=== PATIENT | male | born 1985 | race Caucasian/White ===

== ENCOUNTER 2017-04-30 11:10 | Emergency (ER) | payer SELFPAY ==
--- NOTE | 2017-04-30 12:23 | RAD ---
INDICATION: Swelling overlying the fourth and fifth metacarpals after a car henry fell on the patient's hand.Relevant history includes ORIF of fractured right fifth metacarpal. COMPARISON: Hand radiograph February 20, 2016 TECHNIQUE: 4 views of the right hand were obtained. FINDINGS: There is appearance of a healed fracture involving the fifth metacarpal distal head. The adequately corticated bones are in normal alignment. No significant focal osseous abnormality or fracture is seen. IMPRESSION: No radiographically apparent acute fracture or dislocation. If the patient's symptoms persist, follow-up imaging is recommended.
[2017-04-30 13:27] VITALS: BP 125/79
[2017-04-30] MEDS ORDERED: HYDROcodone/ACETAMIN 5-325 MG* 1 TAB PO ONE (13:39)
--- NOTE | 2017-04-30 13:45 | UC ---
Hand/Wrist HPI - HPI Summary HPI Summary: Kareen figueroa fell on right hand yesterday pain and swelling ringh hand 4/5 MC - History Of Current Complaint Chief Complaint: UCUpperExtremity Stated Complaint: R HAND PAIN Time Seen by Provider: 04/30/17 13:29 Hx Obtained From: Patient Mechanism Of Injury: crush injury Onset/Duration: Sudden Onset, Lasting Days - 1 Severity Initially: Moderate Severity Currently: Moderate Pain Intensity: 7 Pain Scale Used: 0-10 Numeric Character Of Pain: Aching, Throbbing Aggravating Factor(s): Movement Alleviating Factor(s): Rest, Ice, Elevation Associated Signs And Symptoms: Positive: Swelling, Bruising Related History: Dominant Hand Right - Allergies/Home Medications Allergies/Adverse Reactions: Allergies Allergy/AdvReac Type Severity Reaction Status Date / Time Amoxicillin Allergy Mild Rash Verified 04/30/17 11:45 Penicillins Allergy Mild Rash Verified 04/30/17 11:45 PMH/Surg Hx/FS Hx/Imm Hx Previously Healthy: No - Boxers fracture right hand - Surgical History Surgical History: None Surgery Procedure, Year, and Place: Lipoma x 5; - Family History Known Family History: Positive: Other - celiac disease - Social History Occupation: Employed Full-time Lives: With Family Alcohol Use: None Substance Use Type: None Substance Use Comment - Amount & Last Used: stopped 3 weeks ago Smoking Status (MU): Light Every Day Tobacco Smoker Type: Cigarettes Amount Used/How Often: 3-4 Length of Time of Smoking/Using Tobacco: since age 15 Have You Smoked in the Last Year: Yes When Did the Patient Quit Smoking/Using Tobacco: 4 days ago Household Exposure Type: Cigarettes Cessation Counseling: Patient Advised to Stop Review of Systems Constitutional: Negative Skin: Negative Eyes: Negative ENT: Negative Respiratory: Negative Cardiovascular: Negative Gastrointestinal: Negative Genitourinary: Negative Motor: Negative Neurovascular: Negative Musculoskeletal: Arthralgia - right hand especially 4/5 metacarpal Neurological: Negative Psychological: Negative Is Patient Immunocompromised?: No All Other Systems Reviewed And Are Negative: Yes Physical Exam Triage Information Reviewed: Yes Appearance: Well-Appearing, Well-Nourished, Pain Distress - right hand Vital Signs: Initial Vital Signs Temp 97.7 F 04/30/17 11:42 Pulse 90 04/30/17 11:42 Resp 18 04/30/17 11:42 BP 130/78 04/30/17 11:42 Pulse Ox 100 04/30/17 11:42 Vital Signs Reviewed: Yes Eye Exam: Normal Eyes: Positive: Conjunctiva Clear ENT Exam: Normal ENT: Positive: Normal ENT inspection, Hearing grossly normal, TMs normal. Negative: Nasal congestion, Nasal drainage, Trismus, Muffled/hoarse voice Neck exam: Normal Neck: Positive: Supple, Nontender Respiratory Exam: Normal Respiratory: Positive: Chest non-tender, No respiratory distress, No accessory muscle use Cardiovascular Exam: Normal Cardiovascular: Positive: RRR, Pulses Normal, Brisk Capillary Refill Musculoskeletal Exam: Other - right hand pain Musculoskeletal: Positive: Strength Limited @ - right hand, ROM Limited @ - right 4/5 finger, Edema @ - right hand Neurological Exam: Normal Neurological: Positive: Alert, Muscle Tone Normal Psychological Exam: Normal Skin Exam: Normal Diagnostics - Radiology No standard instances Xray Interpretation: No Acute Changes Radiology Interpretation Completed By: ED Physician, Radiologist Re-Evaluation - Re-Evaluation First Eval Change: Improved - Harry wrap apllied n/m/c intact Hand/Wrist Course/Dx - Course Course Of Treatment: rice, pain control, elevation follow with ortho if fails to improve - Differential Dx/Diagnosis Differential Diagnosis/HQI/PQRI: Contusion Provider Diagnoses: Right hand contusion Discharge - Discharge Plan Condition: Stable Disposition: HOME Prescriptions: Hydrocodone-Acetaminophen [Hydrocodone/Acetaminophen 5-325 mg] 1 tab PO Q6HR # 12 tab MDD 4 Ibuprofen TAB* [Motrin TAB* 600 MG] 600 mg PO Q6H PRN #40 tab PRN Reason: Pain - Mild To Moderate Patient Education Materials: Contusion in Adults (ED), RICE Therapy (ED) Forms: *Work Release Referrals: Tanner Perez MD [Primary Care Provider] - Tanner Randall MD [Medical Doctor] - If Needed
== END 2017-04-30 13:54 | disposition home or self-care (01) ==
LOC: UCEAST 11:10
DX: S60.221A Contusion of right hand, initial encounter (principal); Z88.1 Allergy status to other antibiotic agents; Z88.0 Allergy status to penicillin; F17.210 Nicotine dependence, cigarettes, uncomplicated; W19.XXXA Unspecified fall, initial encounter; Y92.9 Unspecified place or not applicable
CPT/HCPCS: 99212; G0463

== ENCOUNTER 2017-08-22 10:44 | Emergency (ER) | payer SELFPAY ==
[2017-08-22 11:27] VITALS: BP 124/77
--- NOTE | 2017-08-22 12:35 | UC ---
Abdominal Pain Male HPI - HPI Summary HPI Summary: Pt reports udden onset of left groin pain after lifting heavy object. Pt states that pain is relieved with left leg extension and external rotation. Pt alos, c /o radiating pain to lft side of scrotum. Denies, scrotal discoloration or swelling. - History of Current Complaint Chief Complaint: UCGU Stated Complaint: GROIN PAIN Time Seen by Provider: 08/22/17 12:23 Hx Obtained From: Patient Onset/Duration: Sudden Onset, Lasting Days - pain has waxed and waned., Still Present Timing: Constant Severity Initially: Moderate Severity Currently: Mild Pain Intensity: 8 Location: Discrete At: LLQ, Other - groin Character: Dull, Sharp Aggravating Factor(s): Movement Alleviating Factor(s): Rest, Position Associated Signs And Symptoms: Positive: Negative - Allergies/Home Medications Allergies/Adverse Reactions: Allergies Allergy/AdvReac Type Severity Reaction Status Date / Time MS Amoxicillin [Amoxicillin] Allergy Mild Rash Verified 08/22/17 11:21 MS Penicillins [Penicillins] Allergy Mild Rash Verified 08/22/17 11:21 Home Medications: Home Medications NK [No Home Medications Reported] 08/22/17 [History Confirmed 08/22/17] PMH/Surg Hx/FS Hx/Imm Hx Previously Healthy: Yes - Surgical History Surgical History: Yes Surgery Procedure, Year, and Place: Colonoscopy and Endoscopy, 2015, [place]; Lipoma x 5; - Family History Known Family History: Positive: Other - celiac disease - Social History Occupation: Employed Full-time Lives: With Family Alcohol Use: None Substance Use Type: None Substance Use Comment - Amount & Last Used: stopped 3 weeks ago Smoking Status (MU): Light Every Day Tobacco Smoker Type: Cigarettes Amount Used/How Often: 08/01 PPD "I'm cuttin' back." Length of Time of Smoking/Using Tobacco: Since Age 16 Have You Smoked in the Last Year: Yes When Did the Patient Quit Smoking/Using Tobacco: 4 days ago Household Exposure Type: Cigarettes Review of Systems Constitutional: Negative Skin: Negative Eyes: Negative ENT: Negative Respiratory: Negative Cardiovascular: Negative Gastrointestinal: Abdominal Pain - groin left side Genitourinary: Other - scrotal tenderness Motor: Negative Neurovascular: Negative Musculoskeletal: Myalgia - left hip/groin Neurological: Negative Psychological: Negative Is Patient Immunocompromised?: No All Other Systems Reviewed And Are Negative: Yes Physical Exam Triage Information Reviewed: Yes Appearance: Well-Appearing Vital Signs: Initial Vital Signs Temp 98.1 F 08/22/17 11:19 Pulse 86 08/22/17 11:19 Resp 16 08/22/17 11:19 BP 124/77 08/22/17 11:19 Pulse Ox 98 08/22/17 11:19 Vital Signs Reviewed: Yes Eye Exam: Normal ENT Exam: Normal Neck exam: Normal Respiratory Exam: Normal Cardiovascular Exam: Normal Abdominal Exam: Other - no inguinal hernia appreciated, no abdominal hernia appreciate, left side spermatic cord tenderness, no swelling, discoloration or testicular elevation. NO urinary complaint Musculoskeletal Exam: Normal Neurological Exam: Normal Psychological Exam: Normal Skin Exam: Normal Abd Pain Male Course/Dx - Course Course Of Treatment: I discussed with the pt the need to follow up with your PCP or with the urologist as referred as soon as needed. - Differential Dx/Clinical Impression Differential Diagnosis/HQI/PQRI: Testicular Torsion, Other - hernia, spermatic cord injury Provider Diagnoses: muscle strain. Discharge - Discharge Plan Condition: Stable Disposition: HOME Patient Education Materials: Groin Pain (ED) Forms: *Work Release Referrals: Tanner Perez MD [Primary Care Provider] - If Needed Antonio Erazo MD [Medical Doctor] - 1 Day Additional Instructions: Please follow up with your PCP or return to clinic. We have referred you to a Urologist to see as needed and if your symptoms do not improve in the next 24 hours.
== END 2017-08-22 12:48 | disposition home or self-care (01) ==
LOC: UCCORT 10:44
DX: S39.011A Strain of muscle, fascia and tendon of abdomen, initial encounter (principal); F17.210 Nicotine dependence, cigarettes, uncomplicated; X50.0XXA Overexertion from strenuous movement or load, initial encounter; Y92.9 Unspecified place or not applicable
CPT/HCPCS: 99211; G0463

== ENCOUNTER 2017-12-03 15:27 | Emergency (ER) | payer SELFPAY ==
[2017-12-03 15:41] VITALS: BP 118/79
--- NOTE | 2017-12-03 16:07 | UC ---
Nausea/Vomiting/Diarrhea HPI - HPI Summary HPI Summary: This is an otherwise healthy 32 yo male who presents with c/o n/v x 2d. He noticed some blood tinged vomitus earlier today after multiple episodes of vomiting. Reports positional chest pain over the last day. No SOB. Also reports associated abdominal pain. He has been constipated for the last couple of days. Vance warm, no measured fevers. He has not taken anything in by both in the last 24 hours. - History of Current Complaint Chief Complaint: UCGI Stated Complaint: VOMITING, AND CHEST CONGESTION Pain Intensity: 7 - Allergies/Home Medications Allergies/Adverse Reactions: Allergies Allergy/AdvReac Type Severity Reaction Status Date / Time MS Amoxicillin [Amoxicillin] Allergy Mild Rash Verified 12/03/17 15:35 MS Penicillins [Penicillins] Allergy Mild Rash Verified 12/03/17 15:35 PMH/Surg Hx/FS Hx/Imm Hx Previously Healthy: Yes - Surgical History Surgical History: Yes Surgery Procedure, Year, and Place: Colonoscopy and Endoscopy, 2016, [place]; Lipoma x 5; - Family History Known Family History: Positive: Other - celiac disease - Social History Alcohol Use: None Substance Use Type: None Substance Use Comment - Amount & Last Used: stopped 3 weeks ago Smoking Status (MU): Former Smoker Type: Cigarettes Amount Used/How Often: / PPD "I'm cuttin' back." Length of Time of Smoking/Using Tobacco: Since Age 16 Have You Smoked in the Last Year: Yes When Did the Patient Quit Smoking/Using Tobacco: 4 days ago Household Exposure Type: Cigarettes Review of Systems Constitutional: Negative Skin: Negative Eyes: Negative ENT: Negative Respiratory: Negative Cardiovascular: Negative Gastrointestinal: Abdominal Pain, Vomiting, Nausea Genitourinary: Negative Motor: Negative Neurovascular: Negative Musculoskeletal: Negative Neurological: Negative Psychological: Negative Is Patient Immunocompromised?: No All Other Systems Reviewed And Are Negative: Yes Physical Exam Triage Information Reviewed: Yes Appearance: Ill-Appearing - mildly Vital Signs: Initial Vital Signs Temp 98.5 F 12/03/17 15:34 Pulse 89 12/03/17 15:34 Resp 18 12/03/17 15:34 BP 118/79 12/03/17 15:34 Pulse Ox 98 12/03/17 15:34 Vital Signs Reviewed: Yes ENT Exam: Other - mucus membranes are tacky Neck: Positive: Supple, Nontender, No Lymphadenopathy Respiratory: Positive: Lungs clear. Negative: Chest non-tender - TTP over L chest wall, Crackles, Rhonchi, Wheezing Cardiovascular Exam: Normal Cardiovascular: Positive: RRR, No Murmur Abdomen Description: Positive: Soft. Negative: Nontender - TTP over epigastric region Bowel Sounds: Positive: Present Musculoskeletal Exam: Normal Neurological Exam: Normal Psychological Exam: Normal Skin Exam: Normal Diagnostics - Laboratory Diagnostic Studies Completed/Ordered: EKG - NSR Naus/Vom/Diarrhea Course/Dx - Course Course Of Treatment: 32 yo male with intractable n/v, abd pain and hematemesis. Epigastric TTP. Recommended he proceed to the ER for further evaluation, which he was agreeable to. Male friend will transport him. - Differential Dx/Diagnosis Differential Diagnoses - Male: Urinary Tract Infection, Gastroenteritis (Viral) Provider Diagnoses: Hematemesis Condition At Discharge: Stable Discharge - Sign-Out/Discharge Documenting (check all that apply): Discharge/Admit/Transfer - Discharge Plan Condition: Stable Disposition: HOME Patient Education Materials: Hematemesis (ED) Referrals: Tanner Perez MD [Primary Care Provider] - Additional Instructions: Instructions: PLEASE PROCEED TO THE EMERGENCY DEPARTMENT FOR FURTHER EVALUATION - Billing Disposition and Condition Condition: STABLE Disposition: HOME
== END 2017-12-03 16:15 | disposition home or self-care (01) ==
LOC: UCEAST 15:27
DX: K92.0 Hematemesis (principal); R10.13 Epigastric pain; K59.00 Constipation, unspecified; Z88.0 Allergy status to penicillin; Z72.0 Tobacco use
CPT/HCPCS: 93005; 99212; G0463

== ENCOUNTER 2017-12-03 16:32 | Emergency (ER) | payer SELFPAY ==
[2017-12-03] MEDS ORDERED: Ondansetron ODT TAB* 4 MG PO ONE (16:51)
[2017-12-03] MEDS ORDERED: Ketorolac INJ* 30 MG/ML 1 ML VIAL IV PUSH ONE (16:51)
[2017-12-03] MEDS ORDERED: NS 0.9% 1000 ML* 1,000 ML IV ONE (16:51)
[2017-12-03] MEDS ORDERED: Pantoprazole IV* 40 MG IV ONE (16:51)
--- NOTE | 2017-12-03 17:00 | ED ---
HPI Chest Pain - HPI Summary HPI Summary: 32 male presents with chest pain and vomiting for the past 2 days. He states that it feels like a burning in his chest. It is worse with positional changes. Denies any recent illness. He denies any cough. He denies any shortness breath. He denies any palpitations. He states he has been nauseous and vomiting. He states he has seen some streaking in his vomit. He denies any chronic ibuprofen or alcohol use. He admits to generalized abdominal pain. He denies any sore throat. He denies any diarrhea. He also admits to constipation. He denies eating anything different. Nothing makes his pain better or worse. - History of Current Complaint Chief Complaint: EDChestWallPain Time Seen by Provider: 12/03/17 16:43 Pain Intensity: 6 - Allergy/Home Medications Allergies/Adverse Reactions: Allergies Allergy/AdvReac Type Severity Reaction Status Date / Time amoxicillin Allergy Rash Verified 12/03/17 16:34 Penicillins Allergy Rash Verified 12/03/17 16:34 PMH/Surg Hx/FS Hx/Imm Hx Endocrine/Hematology History: Denies: Hx Diabetes Cardiovascular History: Reports: Other Cardiovascular Problems/Disorders - H/O BRADYCARDIA Denies: Hx Pacemaker/ICD Comment Only: Hx Hypertension - bradycardia Jul 2015-[facility] Respiratory History: Denies: Hx Asthma Sensory History: Denies: Hx Hearing Aid Psychiatric History: Reports: Hx Anxiety, Hx Panic Disorder - TAKES MEDICATION - Surgical History Surgery Procedure, Year, and Place: Colonoscopy and Endoscopy, 2015, [place]; Lipoma x 5; Infectious Disease History: No Infectious Disease History: Denies: History Other Infectious Disease, Traveled Outside the [place] in Last 30 Days - Family History Known Family History: Positive: Other - celiac disease - Social History Alcohol Use: None Substance Use Type: Reports: None Substance Use Comment - Amount & Last Used: stopped 3 weeks ago Smoking Status (MU): Former Smoker Type: Cigarettes Amount Used/How Often: / PPD "I'm cuttin' back." Length of Time of Smoking/Using Tobacco: Since Age 16 Have You Smoked in the Last Year: Yes Review of Systems Negative: Fever Positive: Chest Pain Negative: Shortness Of Breath, Cough Positive: Abdominal Pain, Vomiting, Nausea. Negative: Diarrhea All Other Systems Reviewed And Are Negative: Yes Physical Exam Triage Information Reviewed: Yes Vital Signs On Initial Exam: Initial Vitals Temp Pulse Resp BP Pulse Ox 98.5 F 75 16 133/81 98 12/03/17 16:34 12/03/17 16:34 12/03/17 16:34 12/03/17 16:34 12/03/17 16:34 Vital Signs Reviewed: Yes Appearance: Positive: Well-Appearing Skin: Positive: Warm, Dry Head/Face: Positive: Normal Head/Face Inspection Eyes: Positive: Normal, EOMI, JOVAN, Conjunctiva Clear ENT: Positive: Normal ENT inspection, Pharynx normal, TMs normal Respiratory/Lung Sounds: Positive: Clear to Auscultation, Breath Sounds Present , Other - reproducible chest pain Cardiovascular: Positive: Normal, RRR Abdomen Description: Positive: Soft, Other: - mild diffuse tenderness greatest in LUQ Bowel Sounds: Positive: Present Musculoskeletal: Positive: Normal Neurological: Positive: Normal Psychiatric: Positive: Normal Diagnostics - Vital Signs Vital Signs Temp Pulse Resp BP Pulse Ox 12/03/17 16:47 76 22 129/75 96 12/03/17 16:45 68 22 96 12/03/17 16:34 98.5 F 75 16 133/81 98 - Laboratory Result Diagrams: 12/03/17 16:58 12/03/17 16:58 Lab Statement: Any lab studies that have been ordered have been reviewed, and results considered in the medical decision making process. - Radiology chest Xray Interpretation: No Acute Changes Radiology Interpretation Completed By: Radiologist abd Xray Interpretation: Positive (See Comments) - IMPRESSION: MODERATE RETAINED STOOL. Radiology Interpretation Completed By: Radiologist - EKG No standard instances EKG Rhythm: Sinus Rhythm EKG Interpretation: sinus rhythm, early repolizaration, EKG Comparison: No Significant Change Re-Evaluation - Re-Evaluation First Eval Re-Evaluation Time: 07:30 Change: Improved Comment: feeling better after gi cocktail Chest Pain Course/Dx - Course Course Of Treatment: 32 male presents with chest pain and vomiting for the past 2 days. He states that it feels like a burning in his chest. It is worse with positional changes. Denies any recent illness. He denies any cough. He denies any shortness breath. He denies any palpitations. He states he has been nauseous and vomiting. He states he has seen some streaking in his vomit. He denies any chronic ibuprofen or alcohol use. He admits to generalized abdominal pain. He denies any sore throat. He denies any diarrhea. He also admits to constipation. He denies eating anything different. Nothing makes his pain better or worse. On exam has reproducible chest pain. Tenderness generalized abdominal greatest in the epigastric region. Lungs clear to auscultation. EKG normal. Labs were within normal limits. two negative troponins. Chest x-ray normal. Abdominal x-ray shows constipation. Feeling better after a GI cocktail. We'll prescribe omeprazole Maalox and Zofran for symptoms. Also prescribed MiraLAX for constipation. will have follow up with primary. Patient understands agrees with plan. - Chest Pain Differential Diagnosis/HQI/PQRI: Acute WI, Chest Wall, GI Disease - Diagnoses Provider Diagnoses: Chest pain, Epigastric pain, Hematemesis, Constipation Discharge - Sign-Out/Discharge Documenting (check all that apply): Discharge/Admit/Transfer - Discharge Plan Condition: Good Disposition: HOME Prescriptions: Al Hydrox/Mg Hydrox/Simet LIQ* [Maalox Plus*] 30 ml PO Q4H PRN #1 bottle PRN Reason: Dyspepsia Omeprazole CAP* [Prilosec CAP* 20 MG] 20 mg PO DAILY #14 cap. Ondansetron ODT TAB* [Zofran 4 MG Odt TAB*] 4 mg PO Q6H PRN #12 tab.odt PRN Reason: Nausea Polyethylene Glycol 3350* [Miralax*] 17 gm PO DAILY #1 box Patient Education Materials: Diet for Stomach Ulcers and Gastritis (ED), Epigastric Pain (ED) Forms: *Work Release Referrals: Tanner Perez MD [Primary Care Provider] - Additional Instructions: Take omeprazole once a day Take Maalox 30ml every 6 hours for epigastric pain as needed Avoid acidic foods Elevated head of bed Stay upright for at least 30 mins after eating Take zofran every 6 hours for nausea Take tyenlol every 6 hours as need for pain Follow up with primary within 5 days Return to ED if develop any new or worsening symptoms - Billing Disposition and Condition Condition: GOOD Disposition: HOME
[2017-12-03 17:08] LABS: ABS Basophils 0.1 10^3/ul (0-0.2); ABS Eosinophils 0.2 10^3/ul (0-0.6); ABS Lymphocytes 2.7 10^3/ul (1.0-4.8); ABS Monocytes 0.7 10^3/ul (0-0.8); ABS Neutrophils 4.4 10^3/ul (1.5-7.7); ABS Nucleated RBC 0 10^3/ul; Eosinophil % 2.1 % (0-6); Hematocrit 50 % (42-52); Hemoglobin 17.8 g/dl (14.0-18.0); Lymphocyte % 33.7 % (25-47); Mean Corpuscular HGB Conc 36 g/dl (31-36); Mean Corpuscular Hemoglobin 30 pg (27-31); Mean Corpuscular Volume 85 fL (80-94); Mean Platelet Volume 7.8 um3 (7.4-10.4); Nucleated Red Blood Cells % 0.1; Platelet Count 266 10^3/ul (150-450); Red Cell Distribution Width 13 % (10.5-15)
[2017-12-03 17:15] LABS: INR 0.91 (0.77-1.02)
[2017-12-03 17:25] LABS: EGFR Non-African American 96.6 (>60)
[2017-12-03] MEDS ORDERED: Al Hydrox/Mg Hydrox/Simet LIQ* 30 ML UDC PO ONE (18:02)
[2017-12-03] MEDS ORDERED: Lidocaine 2% VISCOUS* 15 ML UDC PO ONE (18:02)
--- NOTE | 2017-12-03 18:07 | RAD ---
INDICATION: Abdominal pain COMPARISON: None TECHNIQUE: Erect and supine views of the abdomen are submitted. FINDINGS: Bones: There are no acute bony findings. Soft tissues: The soft tissues appear normal. The psoas margins are sharp. Bowel gas pattern: There is no obstruction. There is moderate stool. Calcifications: There are no abnormal calcifications. Other: None IMPRESSION: MODERATE RETAINED STOOL.
--- NOTE | 2017-12-03 18:08 | RAD ---
INDICATION: Chest pain COMPARISON: July 01, 2015 TECHNIQUE: PA and lateral dual-energy views were obtained. FINDINGS: Bones/Soft Tissues: There are no acute bony findings. Cardiomediastinal: The cardiomediastinal silhouette is normal. Lungs: There are no infiltrates. Pleura: There are no pleural effusions. Other: None IMPRESSION: NO ACTIVE DISEASE.
[2017-12-03] MEDS ORDERED: Famotidine TAB* 20 MG PO ONE (19:09)
[2017-12-03 20:35] VITALS: BP 118/78
== END 2017-12-03 20:34 | disposition home or self-care (01) ==
LOC: ED 16:32
DX: R07.9 Chest pain, unspecified (principal); R10.13 Epigastric pain; K92.0 Hematemesis; K59.00 Constipation, unspecified; F17.210 Nicotine dependence, cigarettes, uncomplicated; Z88.0 Allergy status to penicillin; Z88.3 Allergy status to other anti-infective agents
CPT/HCPCS: 36415; 71046; 74019; 80053; 83690; 84443; 84484; 85025; 85610; 85730; 86141; 93005; 96374; 96375; 99283; A9270-GY; J1885

== ENCOUNTER 2018-01-24 01:41 | Emergency (ER) | payer SELFPAY ==
[2018-01-24 04:37] VITALS: BP 136/92
--- NOTE | 2018-01-24 04:50 | ED ---
Derek Cordero SooYoung, scribed for Jere Chan MD on 01/24/18 at 0345 . Lower Extremity - HPI Summary HPI Summary: A 32 y/o M presents to ED with c/o LLE edema onset approx 2200 on 01/23/18. Associated sx: LLE pain. Pt states prior to edema he was able to ambulate at baseline. Denies trauma. Denies any recent long car rides, plane or train trips. - History of Current Complaint Chief Complaint: EDExtremityLower Stated Complaint: LT LEG SWOLLEN Time Seen by Provider: 01/24/18 03:35 Hx Obtained From: Patient Onset of Pain: Hours Onset/Duration: Still Present Severity Initially: Moderate Severity Currently: Moderate Pain Intensity: 6 Pain Scale Used: 0-10 Numeric Timing: Constant Location: Is Discrete @ - LLE Associated Signs And Symptoms: Positive: Other - LLE pain - Allergies/Home Medications Allergies/Adverse Reactions: Allergies Allergy/AdvReac Type Severity Reaction Status Date / Time amoxicillin Allergy Rash Verified 01/10/18 16:08 Penicillins Allergy Rash Verified 01/10/18 16:08 PMH/Surg Hx/FS Hx/Imm Hx Previously Healthy: No Endocrine/Hematology History: Denies: Hx Diabetes Cardiovascular History: Reports: Other Cardiovascular Problems/Disorders - H/O BRADYCARDIA Denies: Hx Pacemaker/ICD Comment Only: Hx Hypertension - bradycardia Jul 2015-[facility] Respiratory History: Denies: Hx Asthma Sensory History: Denies: Hx Hearing Aid Psychiatric History: Reports: Hx Anxiety, Hx Panic Disorder - TAKES MEDICATION - Surgical History Surgery Procedure, Year, and Place: Colonoscopy and Endoscopy, 2015, [place]; Lipoma x 5; Infectious Disease History: No Infectious Disease History: Denies: History Other Infectious Disease, Traveled Outside the [place] in Last 30 Days - Family History Known Family History: Positive: Cardiac Disease - mom's sister with [place] at age 40 , grandfather with [place] in his late 40's, Other - celiac disease - Social History Occupation: Employed Full-time Lives: With Family Alcohol Use: Occasionally Hx Substance Use: No Substance Use Type: Reports: None Substance Use Comment - Amount & Last Used: stopped 3 weeks ago Hx Tobacco Use: Yes Smoking Status (MU): Former Smoker Type: Cigarettes Amount Used/How Often: 08/01 PPD "I'm cuttin' back." Length of Time of Smoking/Using Tobacco: Since Age 16 Have You Smoked in the Last Year: Yes Review of Systems Negative: Fever Positive: Edema - LLE, Other - LLE pain All Other Systems Reviewed And Are Negative: Yes Physical Exam - Summary Physical Exam Summary: VITAL SIGNS: Reviewed. GENERAL: Patient is a well-developed and nourished MALE who is lying comfortable in the stretcher. Patient is not in any acute respiratory distress. HEAD AND FACE: No signs of trauma. No ecchymosis, hematomas or skull depressions. No sinus tenderness. EYES: PERRLA, EOMI x 2, No injected conjunctiva, no nystagmus. EARS: Hearing grossly intact. Ear canals and tympanic membranes are within normal limits. MOUTH: Oropharynx within normal limits. NECK: Supple, trachea is midline, no adenopathy, no JVD, no carotid bruit, no c- spine tenderness, neck with full ROM. CHEST: Symmetric, no tenderness at palpation LUNGS: Clear to auscultation bilaterally. No wheezing or crackles. CVS: Regular rate and rhythm, S1 and S2 present, no murmurs or gallops appreciated. ABDOMEN: Soft, non-tender. No signs of distention. No rebound no guarding, and no masses palpated. Bowel sounds are normal. EXTREMITIES: FROM in all major joints, no edema, no cyanosis or clubbing. Tenderness over L calf. NEURO: Alert and oriented x 3. No acute neurological deficits. Speech is normal and follows commands. NEUROVASCULAR: Intact SKIN: Dry and warm Triage Information Reviewed: Yes Vital Signs On Initial Exam: Initial Vitals Temp Pulse Resp BP Pulse Ox 98.1 F 81 16 156/139 98 01/24/18 01:57 01/24/18 01:57 01/24/18 01:57 01/24/18 01:57 01/24/18 01:57 Vital Signs Reviewed: Yes Diagnostics - Vital Signs Vital Signs Temp Pulse Resp BP Pulse Ox 01/24/18 01:57 98.1 F 81 16 156/139 98 - Laboratory Lab Statement: Any lab studies that have been ordered have been reviewed, and results considered in the medical decision making process. Re-Evaluation - Re-Evaluation 1 Re-Evaluation Time: 04:25 Change: Unchanged Comment: Discussing lab results with pt. Pt voiced understanding. Lower Extremity Course/Dx - Course Course Of Treatment: A 32 y/o M presents to ED with c/o LLE edema onset approx 2200 on 01/23/18. Associated sx: LLE pain. Pt states prior to edema he was able to ambulate at baseline. Denies trauma. Denies any recent long car rides, plane or train trips. - Diagnoses Provider Diagnoses: Leg pain Discharge - Sign-Out/Discharge Documenting (check all that apply): Discharge/Admit/Transfer - DC - Discharge Plan Condition: Stable Disposition: HOME Prescriptions: Ibuprofen TAB* [Motrin TAB* 800 MG] 800 mg PO Q6H PRN #30 tab PRN Reason: Pain Patient Education Materials: Ibuprofen (By mouth), Leg Pain (ED) Referrals: Tanner Perez MD [Primary Care Provider] - Additional Instructions: RETURN TO THE EMERGENCY DEPARTMENT FOR CHANGING OR WORSENING SYMPTOMS. The documentation as recorded by the Derek toth SooYoung accurately reflects the service I personally performed and the decisions made by Dustin raphael Abdul, MD.
== END 2018-01-24 04:35 | disposition home or self-care (01) ==
LOC: ED 01:41
DX: M79.605 Pain in left leg (principal); R60.0 Localized edema; Z87.891 Personal history of nicotine dependence; Z88.3 Allergy status to other anti-infective agents; Z88.0 Allergy status to penicillin
CPT/HCPCS: 36415; 85379; 85610; 85730; 99282

== ENCOUNTER 2018-02-02 22:16 | Emergency (ER) | payer SELFPAY ==
[2018-02-02] MEDS ORDERED: Metoclopramide TAB* 10 MG PO ONE (23:04)
[2018-02-02] MEDS ORDERED: Acetaminophen TAB* 325 MG PO ONE (23:04)
[2018-02-02] MEDS ORDERED: diPHENhydraMINE PO* 25 MG PO ONE (23:04)
--- NOTE | 2018-02-02 23:33 | ED ---
Headache - HPI Summary HPI Summary: Patient complains of intermittent headache, photosensitivity, blurry vision x few weeks. Headache described as behind bilateral eyes, extending over the top of the head and right side head. At worst rated at 8/10. Resolves spontaneously or with sleep. Patient has not been taking any medication for MORENO. Denies fever, neck stiffness, AMS, focal deficits, cough, sore throat, ear pain, CP, SOB, N/V/D, abdominal pain, change in urinary BM. States history of occasional headaches, but these of been more frequent. Medical history is GERD , bradycardia. - History Of Current Complaint Chief Complaint: EDHeadache Stated Complaint: HEADACHE Time Seen by Provider: 02/02/18 22:33 Hx Obtained From: Patient Onset/Duration: Gradual Onset Initially Headache Was: Moderate Currently Pain Is: Moderate Timing: Intermittent, Lasting: Character: Throbbing Location of Headache: Frontal, Parietal Associated Signs And Symptoms: Visual Changes - Allergies/Home Medications Allergies/Adverse Reactions: Allergies Allergy/AdvReac Type Severity Reaction Status Date / Time amoxicillin Allergy Rash Verified 01/10/18 16:08 Penicillins Allergy Rash Verified 01/10/18 16:08 PMH/Surg Hx/FS Hx/Imm Hx Endocrine/Hematology History: Denies: Hx Anticoagulant Therapy, Hx Diabetes Cardiovascular History: Reports: Other Cardiovascular Problems/Disorders - H/O BRADYCARDIA Denies: Hx Pacemaker/ICD Comment Only: Hx Hypertension - bradycardia Jul 2015-[facility] Respiratory History: Denies: Hx Asthma History: Denies: Hx Dialysis Sensory History: Denies: Hx Hearing Aid Neurological History: Denies: Hx CVA Psychiatric History: Reports: Hx Anxiety, Hx Panic Disorder - TAKES MEDICATION - Surgical History Surgery Procedure, Year, and Place: Colonoscopy and Endoscopy, 2016, [place]; Lipoma x 5; Infectious Disease History: No Infectious Disease History: Denies: History Other Infectious Disease, Traveled Outside the [place] in Last 30 Days - Family History Known Family History: Positive: Cardiac Disease - mom's sister with [place] at age 40 , grandfather with [place] in his late 40's, Other - celiac disease - Social History Alcohol Use: Occasionally Hx Substance Use: No Substance Use Type: Reports: None Substance Use Comment - Amount & Last Used: stopped 3 weeks ago Hx Tobacco Use: Yes Smoking Status (MU): Former Smoker Type: Cigarettes Amount Used/How Often: 1/10 PPD "I'm cuttin' back." Length of Time of Smoking/Using Tobacco: Since Age 16 Have You Smoked in the Last Year: Yes Review of Systems Constitutional: Negative Positive: Photophobia, Blurred Vision ENT: Negative Cardiovascular: Negative Respiratory: Negative Gastrointestinal: Negative Genitourinary: Negative Musculoskeletal: Negative Skin: Negative Positive: Headache Psychological: Normal All Other Systems Reviewed And Are Negative: Yes Physical Exam Triage Information Reviewed: Yes Vital Signs On Initial Exam: Initial Vitals Temp Pulse Resp BP Pulse Ox 97.9 F 81 17 140/83 97 02/02/18 22:24 02/02/18 22:24 02/02/18 22:24 02/02/18 22:24 02/02/18 22:24 Vital Signs Reviewed: Yes Appearance: Positive: Well-Appearing Skin: Positive: Warm Head/Face: Positive: Normal Head/Face Inspection Eyes: Positive: Normal ENT: Positive: Normal ENT inspection Neck: Positive: Supple Respiratory/Lung Sounds: Positive: Clear to Auscultation Cardiovascular: Positive: Normal Abdomen Description: Positive: Nontender Musculoskeletal: Positive: Normal Neurological: Positive: Normal Psychiatric: Positive: Normal AVPU Assessment: Alert - [place] Coma Scale Best Eye Response: 4 - Spontaneous Best Motor Response: 6 - Obeys Commands Best Verbal Response: 5 - Oriented Coma Scale Total: 15 Diagnostics - Vital Signs Vital Signs Temp Pulse Resp BP Pulse Ox 02/02/18 22:24 97.9 F 81 17 140/83 97 - Laboratory Lab Statement: Any lab studies that have been ordered have been reviewed, and results considered in the medical decision making process. Re-Evaluation - Re-Evaluation 1 Re-Evaluation Time: 00:10 Comment: Pain somewhat resolved with Reglan, Tylenol, Benadryl Headache Course/Dx - Course Course Of Treatment: Patient complains of intermittent headache, photosensitivity, blurry vision x few weeks. Headache described as behind bilateral eyes, extending over the top of the head and right side head. At worst rated at 8/10. Resolves spontaneously or with sleep. Patient has not been taking any medication for MORENO. Denies fever, neck stiffness, AMS, focal deficits, cough, sore throat, ear pain, CP, SOB, N/V/D, abdominal pain, change in urinary BM. States history of occasional headaches, but these of been more frequent. Medical history is GERD, bradycardia. Headache pain is somewhat improved with migraine cocktail. Vital signs within normal limits and stable. - Diagnoses Provider Diagnoses: Tension type headache Discharge - Sign-Out/Discharge Documenting (check all that apply): Patient Departure - Discharge Plan Condition: Stable Disposition: HOME Patient Education Materials: Tension Headache (ED) Referrals: Tanner Perez MD [Primary Care Provider] - Additional Instructions: Follow-up with primary care. Return to the ED for any new or worsening symptoms - Billing Disposition and Condition Condition: STABLE Disposition: Home
[2018-02-03 01:03] VITALS: BP 121/74
== END 2018-02-03 01:01 | disposition home or self-care (01) ==
LOC: ED 22:16
DX: G44.209 Tension-type headache, unspecified, not intractable (principal); H53.8 Other visual disturbances; I10 Essential (primary) hypertension; R00.1 Bradycardia, unspecified; K21.9 Gastro-esophageal reflux disease without esophagitis; F41.0 Panic disorder [episodic paroxysmal anxiety]; Z88.0 Allergy status to penicillin; Z82.49 Family history of ischemic heart disease and other diseases of the circulatory system; Z83.79 Family history of other diseases of the digestive system; Z87.891 Personal history of nicotine dependence
CPT/HCPCS: 99283; A9270-GY

== ENCOUNTER 2018-02-09 00:52 | Emergency (ER) | payer SELFPAY ==
--- OUTSIDE RECORDS SUMMARY | 2018-02-09 01:17 | XMS REPORT ---
:1985 External Reference #:[id number] Author Organization [facility] Address [address], [address] [place] [address] Phone [phone] Care Team Providers Name Role Phone Tanner Perez MD Care Team Information Burlap Roll Coverer Unavailable Tanner Perez MD Primary Care Physician Unavailable Payers Type Date Identification Numbers Payment Provider Subscriber Commercial Policy Number: [id number] Abel Adair PayID: [id number] [address] [address] [place] [address] Problems Date Description Provider Status Onset: 01/12/2016 Late effect of fracture of upper Tanner Lawton M.D. Active extremities Onset: 02/07/2018 Syncope and collapse Esdras Drew M.D., Active FACC Onset: 02/07/2018 Essential hypertension Esdras Drew M.D., Active FACC Onset: 02/07/2018 Chest pain Esdras Drew M.D., Active FACC Onset: 05/07/2017 Crushing injury of hand MARCELO Ring Active Onset: 02/14/2016 Closed fracture of metacarpal MARCELO Ring Active bone Family History Date Family Member(s) Problem(s) Comments Mother Heart Murmur Grandfather Diabetes Grandmother Diabetes Grandmother Heart problems Afib Grandmother Lung Cancer Social History Type Date Description Comments Lives With Girlfriend Occupation Unemployed Work Status Currently Working Cigarette Use Former Cigarette Smoker 1 pack per week x14 years ETOH Use Rarely consumes alcohol Recreational Drug Use Denies Drug Use Daily Caffeine Patient consumes minimal amounts of caffeine Allergies, Adverse Reactions, Alerts Date Description Reaction Status Severity Comments 05/07/2017 Penicillins active 02/07/2018 Amoxicillin active 01/12/2016 NKDA inactive Medications Medication Date Status Form Strength Qnty SIG Indications Ordering Provider Pepcid 0 Active Tablets 20mg 1 by Unknown 000 mouth as needed Tylenol 0 Active Tablets 325mg 2 by Unknown 000 mouth every 12 hours as needed Keflex Hx Capsules 500mg 40caps 1 by Tanner 016 - mouth 4 Leighann, times a M.D. 016 day Paxil Hx Tablets 30mg Unknown 000 - 017 Oxycodone-Acet Hx Unknown aminophen 000 - 016 Ibuprofen Hx Tablets 600mg Dibartolo, 000 Mary J., N.P. Hydrocodone-Ac Hx Tablets 5-325mg Dibartolo, etaminophen 000 Mary J., N.P. Sumatriptan Hx Tablets 100mg take 1 Unknown Succinate 000 - tablet AT Start Of 017 Headache, May Repeat Once In [address] H[address] 40mg take 1 Unknown 000 - capsule once 017 daily Divalproex Hx Tablets ER 500mg take 1 Unknown Sodium ER 000 - 24HR tablet once 017 daily Hydrocodone-Ac Hx Tablets 5-325mg Dibartolo, etaminophen 000 - Mary J., N.P. 017 Vital Signs Date Vital Result Comment 02/07/2018 BP Systolic Sitting Right Arm 122 mmHg BP Diastolic Sitting Right Arm 82 mmHg Heart Rate 57 /min Respiratory Rate 14 /min Height 72.5 inches 6'0.50" Weight 238.00 lb BMI (Body Mass Index) 31.8 kg/m2 BSA (Body Surface Area) 2.31 m2 Newton body weight in kilograms 82 O2 % BldC Oximetry 97 % Room air 05/07/2017 BP Systolic 123 mmHg BP Diastolic 90 mmHg Heart Rate 105 /min Height 72.5 inches 6'0.50" Weight 233.50 lb BMI (Body Mass Index) 31.2 kg/m2 BSA (Body Surface Area) 2.29 m2 Newton body weight in kilograms 82 01/12/2016 BP Systolic 123 mmHg BP Diastolic 84 mmHg Heart Rate 61 /min Height 71 inches 5'11" Weight 240.00 lb BMI (Body Mass Index) 33.5 kg/m2 BSA (Body Surface Area) 2.28 m2 Newton body weight in kilograms 78 Results Test Date Test Result H/L Range Note CBC 01/13/2016 White Blood Count 6.1 K/uL 3.4-10.5 Red Blood Count 5.28 M/uL 4.20-5.80 Hemoglobin 15.8 gm/dL 12.8-17.0 Hematocrit 44.7 % 38.0-48.0 Mean Cell Volume 84.7 fl 80.0-96.0 Mean Corpuscular HGB 29.9 pg 27.0-33.0 Mean Corpuscular HGB Conc 35.3 g/dL 31.7-36.0 Platelet Count 198 K/uL 150-400 Red Cell Distri Width %CV 12.6 % 11.6-15.8 Mean Platelet Volume 10.6 fL 6.6-10.6 Procedures Date CPT Code Description Status 02/07/2018 66096 EKG-Tracing And Report Completed 03/22/2016 05077 Radiology, Hand: Minimum Three Views Completed 03/22/2016 97641 Radiology, Hand: Minimum Three Views Completed 03/01/2016 16766 Radiology, Hand: Minimum Three Views Completed 03/01/2016 03198 Radiology, Hand: Minimum Three Views Completed 02/14/2016 97288 Radiology, Hand: Minimum Three Views Completed 02/14/2016 64049 Radiology, Hand: Minimum Three Views Completed 01/14/2016 66978 Radiology, Hand: Minimum Three Views Completed 01/13/2016 10999 Fluoroscopy Up To 1 HR Physician Time Completed 01/13/2016 24733 Percutaneous skeletal fixation metacarpal fracture each Completed bone 05/11/2015 18564 Echocardiogram Complete Completed Encounters Type Date Location Provider CPT E/M Dx Office Visit 02/07/2018 10:00a Cardiology Office Esdras Drew, 76558 R07.9 Marla, [facility] I10 R55 Office Visit 05/07/2017 3:00p Orthopaedic Office MARCELO Ring [id number] [id number] Office Visit 01/12/2016 1:45p Orthopaedic Office Tanner Lawton, 36817 S62.306A Marla Office Visit 05/11/2015 3:27p [facility] Arlene Matson, 02964 R55 Medical [facility]agland Marla Office Visit 05/11/2015 9:46a Cardiology Office Esdras Rick [id number] R55 Marla Drew, [facility] Plan of Care 02/07/2018 - Esdras Drew M.D., [facility]07.9 Chest pain, unspecifiedNew Orders:Echocardiogram, Exercise StressComments:Non exertional. He does not know his father's medical history. Will check a stress echo. He will call to discuss the results.I10 Essential (primary) hypertensionComments:He will have a home monitor and check it daily and report back to me.R55 Syncope and collapseComments:No recurrence. I reassured him but told him to get down to the floor if the symptoms recur.AllFollow up:Follow up with us on a PRN basis.
[2018-02-09] MEDS ORDERED: Metoclopramide TAB* 10 MG PO ONE (01:29)
[2018-02-09] MEDS ORDERED: diPHENhydraMINE PO* 25 MG PO ONE (01:29)
[2018-02-09] MEDS ORDERED: Ketorolac INJ* 30 MG/ML 1 ML VIAL IM ONE (01:37)
--- NOTE | 2018-02-09 01:39 | ED ---
Headache - HPI Summary HPI Summary: Patient complains of headache. Patient has been seen here before for same. Patient states the same headache and is recurrent. States recurrent symptoms of blurry vision sensitivity to light. Patient states he takes Tylenol which usually takes the edge off. Denies fever, neck stiffness, cough, sore throat, ear pain, nasal discharge, CP, SOB, N/V/D, abdominal pain, change in urinary BM. Patient eating and drinking normally. Medical history is GERD, anxiety, depression. - History Of Current Complaint Chief Complaint: EDHeadache Stated Complaint: HEADACHE Time Seen by Provider: 02/09/18 01:27 Hx Obtained From: Patient, Family/Yard Pilot Onset/Duration: Gradual Onset Initially Headache Was: Moderate Currently Pain Is: Moderate Timing: Intermittent, Lasting: Character: Throbbing Location of Headache: Frontal, Parietal Aggravating Factor: Nothing Allevating Factors: Nothing - Allergies/Home Medications Allergies/Adverse Reactions: Allergies Allergy/AdvReac Type Severity Reaction Status Date / Time amoxicillin Allergy Rash Verified 01/10/18 16:08 Penicillins Allergy Rash Verified 01/10/18 16:08 PMH/Surg Hx/FS Hx/Imm Hx Endocrine/Hematology History: Denies: Hx Anticoagulant Therapy, Hx Diabetes Cardiovascular History: Reports: Other Cardiovascular Problems/Disorders - H/O BRADYCARDIA Denies: Hx Pacemaker/ICD Comment Only: Hx Hypertension - bradycardia Jul 2015-[facility] Respiratory History: Denies: Hx Asthma History: Denies: Hx Dialysis Sensory History: Denies: Hx Hearing Aid Neurological History: Denies: Hx CVA Psychiatric History: Reports: Hx Anxiety, Hx Panic Disorder - TAKES MEDICATION - Surgical History Surgery Procedure, Year, and Place: Colonoscopy and Endoscopy, 2016, [place]; Lipoma x 5; Infectious Disease History: No Infectious Disease History: Denies: History Other Infectious Disease, Traveled Outside the [place] in Last 30 Days - Family History Known Family History: Positive: Cardiac Disease - mom's sister with [place] at age 40 , grandfather with [place] in his late 40's, Other - celiac disease - Social History Alcohol Use: Occasionally Hx Substance Use: No Substance Use Type: Reports: None Substance Use Comment - Amount & Last Used: stopped 3 weeks ago Hx Tobacco Use: Yes Smoking Status (MU): Former Smoker Type: Cigarettes Amount Used/How Often: 08/01 PPD "I'm cuttin' back." Length of Time of Smoking/Using Tobacco: Since Age 16 Have You Smoked in the Last Year: Yes Review of Systems Constitutional: Negative Positive: Photophobia, Blurred Vision ENT: Negative Cardiovascular: Negative Respiratory: Negative Gastrointestinal: Negative Genitourinary: Negative Musculoskeletal: Negative Skin: Negative Positive: Headache Psychological: Normal All Other Systems Reviewed And Are Negative: Yes Physical Exam Triage Information Reviewed: Yes Vital Signs On Initial Exam: Initial Vitals Temp Pulse Resp BP Pulse Ox 98.5 F 95 20 139/89 96 02/09/18 01:03 02/09/18 01:03 02/09/18 01:03 02/09/18 01:03 02/09/18 01:03 Vital Signs Reviewed: Yes Appearance: Positive: Well-Appearing Skin: Positive: Warm Head/Face: Positive: Normal Head/Face Inspection Eyes: Positive: Normal Neck: Positive: Supple Respiratory/Lung Sounds: Positive: Clear to Auscultation Cardiovascular: Positive: Normal Abdomen Description: Positive: Nontender Musculoskeletal: Positive: Normal Neurological: Positive: Normal Psychiatric: Positive: Normal AVPU Assessment: Alert - [place] Coma Scale Best Eye Response: 4 - Spontaneous Best Motor Response: 6 - Obeys Commands Best Verbal Response: 5 - Oriented Coma Scale Total: 15 Diagnostics - Vital Signs Vital Signs Temp Pulse Resp BP Pulse Ox 02/09/18 01:03 98.5 F 95 20 139/89 96 - Laboratory Lab Statement: Any lab studies that have been ordered have been reviewed, and results considered in the medical decision making process. Headache Course/Dx - Course Course Of Treatment: Patient complains of headache. Patient has been seen here before for same. Patient states the same headache and is recurrent. States recurrent symptoms of blurry vision sensitivity to light. Patient states he takes Tylenol which usually takes the edge off. Denies fever, neck stiffness, cough, sore throat, ear pain, nasal discharge, CP, SOB, N/V/D, abdominal pain, change in urinary BM. Patient eating and drinking normally. Medical history is GERD, anxiety, depression. Neuro exam normal. EOMs intact. Vital signs within normal limits. Patient states headache symptoms are improving with migraine cocktail. Ready to go home. Recommend follow-up with primary care for further management of recurrent headaches. - Diagnoses Provider Diagnoses: Headache Discharge - Sign-Out/Discharge Documenting (check all that apply): Patient Departure - Discharge Plan Condition: Stable Disposition: HOME Patient Education Materials: Acute Headache (ED) Referrals: Tanner Perez MD [Primary Care Provider] - Additional Instructions: Follow-up with primary care for further treatment of recurrent headaches. Return to the ED for any new or worsening symptoms - Billing Disposition and Condition Condition: STABLE Disposition: Home
[2018-02-09 03:06] VITALS: BP 108/74
== END 2018-02-09 03:05 | disposition home or self-care (01) ==
LOC: ED 00:52
DX: R51 Headache (principal); H53.8 Other visual disturbances; F41.0 Panic disorder [episodic paroxysmal anxiety]; Z88.0 Allergy status to penicillin; Z82.49 Family history of ischemic heart disease and other diseases of the circulatory system; F17.210 Nicotine dependence, cigarettes, uncomplicated
CPT/HCPCS: 96372; 99282; A9270-GY; J1885

== ENCOUNTER 2018-02-26 22:14 | Emergency (ER) | payer SELFPAY ==
[2018-02-26] MEDS ORDERED: NS 0.9% 1000 ML* 1,000 ML IV ONE (23:55)
[2018-02-26] MEDS ORDERED: diPHENhydraMINE IV* 50 MG/ML 1 ml VIAL (BENADRYL) IV ONE (23:57)
[2018-02-26] MEDS ORDERED: Metoclopramide IV* 5 MG/ML 2 ML VIAL IV SLOW PU ONE (23:57)
[2018-02-26] MEDS ORDERED: Ketorolac INJ* 30 MG/ML 1 ML VIAL IV PUSH ONE (23:57)
[2018-02-27 00:18] LABS: ABS Basophils 0.1 10^3/ul (0-0.2); ABS Eosinophils 0.2 10^3/ul (0-0.6); ABS Monocytes 0.6 10^3/ul (0-0.8); ABS Neutrophils 2.8 10^3/ul (1.5-7.7); ABS Nucleated RBC 0 10^3/ul; Eosinophil % 2.3 % (0-6); Hematocrit 48 % (42-52); Hemoglobin 16.8 g/dl (14.0-18.0); Mean Corpuscular HGB Conc 35 g/dl (31-36); Mean Corpuscular Hemoglobin 30 pg (27-31); Mean Corpuscular Volume 85 fL (80-94); Mean Platelet Volume 7.6 um3 (7.4-10.4); Nucleated Red Blood Cells % 0.2; Platelet Count 229 10^3/ul (150-450); Red Blood Count 5.67 10^6/ul (4.00-5.40); Red Cell Distribution Width 13 % (10.5-15); White Blood Count 6.6 10^3/ul (3.5-10.8)
[2018-02-27 00:30] LABS: INR 0.96 (0.77-1.02)
[2018-02-27 00:36] LABS: EGFR Non-African American 83.7 (>60)
--- NOTE | 2018-02-27 01:46 | ED ---
Headache - HPI Summary HPI Summary: This is scribe Lester Hewitt documenting for attending Madhu Chan M.D. Patient is a 32 y/o M w/ c/o MORENO, dizziness, N/V, decreased appetite. He states he has had HAs, dizziness for past few months, N/V and decreased appetite for past four days. Pt under care of Dr. Vegas for chronic MORENO. The patient reports taking Tylenol this morning with no relief of Sx. On triage, pain is rated 7/10 and nothing is noted to aggravate/alleviate Sx. Patient also takes paroxetine for depresion and anxiety and Imitrex. Allergies reviewed. I, Dr. Chan, personally performed the services described in this documentation as scribed in my presence and it is both accurate and complete. - History Of Current Complaint Chief Complaint: EDHeadache Stated Complaint: HEADACHE/NAUSEA/DIZZY Time Seen by Provider: 02/26/18 23:14 Hx Obtained From: Patient Onset/Duration: Started days ago - N/V, decreased appetite onset four days ago, Started weeks ago - past few months pt reports experiencing HAs., Still Present Currently Pain Is: Severe - 7/10 Timing: Constant Aggravating Factor: Nothing Allevating Factors: Nothing Associated Signs And Symptoms: Dizziness, Nausea, Vomiting, Other (Noted In Comments) - decreased appetite - Allergies/Home Medications Allergies/Adverse Reactions: Allergies Allergy/AdvReac Type Severity Reaction Status Date / Time amoxicillin Allergy Rash Verified 01/10/18 16:08 Penicillins Allergy Rash Verified 01/10/18 16:08 PMH/Surg Hx/FS Hx/Imm Hx Endocrine/Hematology History: Denies: Hx Anticoagulant Therapy, Hx Diabetes Cardiovascular History: Reports: Other Cardiovascular Problems/Disorders - H/O BRADYCARDIA Denies: Hx Pacemaker/ICD Comment Only: Hx Hypertension - bradycardia Jul 2015-[facility] Respiratory History: Denies: Hx Asthma History: Denies: Hx Dialysis Sensory History: Denies: Hx Hearing Aid Neurological History: Denies: Hx CVA Psychiatric History: Reports: Hx Anxiety, Hx Panic Disorder - TAKES MEDICATION - Surgical History Surgery Procedure, Year, and Place: Colonoscopy and Endoscopy, 2016, [place]; Lipoma x 5; - Immunization History Immunizations Up to Date: Yes Infectious Disease History: No Infectious Disease History: Denies: History Other Infectious Disease, Traveled Outside the [place] in Last 30 Days - Family History Known Family History: Positive: Cardiac Disease - mom's sister with PR at age 40 , grandfather with PR in his late 40's, Other - celiac disease - Social History Alcohol Use: Occasionally Hx Substance Use: No Substance Use Type: Reports: None Substance Use Comment - Amount & Last Used: stopped 3 weeks ago Hx Tobacco Use: Yes Smoking Status (MU): Former Smoker Type: Cigarettes Amount Used/How Often: 08/01 PPD "I'm cuttin' back." Length of Time of Smoking/Using Tobacco: Since Age 16 Have You Smoked in the Last Year: Yes Review of Systems Positive: Vomiting, Nausea, Other - decreased appetite Neurological: Other - dizziness Positive: Headache All Other Systems Reviewed And Are Negative: Yes Physical Exam - Summary Physical Exam Summary: VITAL SIGNS: Reviewed. GENERAL: Patient is a well-developed and nourished male who is lying comfortable in the stretcher. Patient is not in any acute respiratory distress. HEAD AND FACE: No signs of trauma. No ecchymosis, hematomas or skull depressions. No sinus tenderness. EYES: PERRLA, EOMI x 2, No injected conjunctiva, no nystagmus. EARS: Hearing grossly intact. Ear canals and tympanic membranes are within normal limits. MOUTH: Oropharynx within normal limits. NECK: Supple, trachea is midline, no adenopathy, no JVD, no carotid bruit, no c- spine tenderness, neck with full ROM. CHEST: Symmetric, no tenderness at palpation LUNGS: Clear to auscultation bilaterally. No wheezing or crackles. CVS: Regular rate and rhythm, S1 and S2 present, no murmurs or gallops appreciated. ABDOMEN: Soft, non-tender. No signs of distention. No rebound no guarding, and no masses palpated. Bowel sounds are normal. EXTREMITIES: FROM in all major joints, no edema, no cyanosis or clubbing. NEURO: Alert and oriented x 3. No acute neurological deficits. Speech is normal and follows commands.Tenderness over cervical paraspinal muscles. GCS 15. SKIN: Dry and warm Triage Information Reviewed: Yes Vital Signs On Initial Exam: Initial Vitals Temp Pulse Resp BP Pulse Ox 99.0 F 82 16 142/96 97 02/26/18 22:24 02/26/18 22:24 02/26/18 22:24 02/26/18 22:24 02/26/18 22:24 Vital Signs Reviewed: Yes Diagnostics - Vital Signs Vital Signs Temp Pulse Resp BP Pulse Ox 02/26/18 22:24 99.0 F 82 16 142/96 97 - Laboratory Lab Results: Lab Results 02/27/18 02/27/18 02/27/18 Range/Units 00:07 00:07 00:07 WBC 6.6 (3.5-10.8) 10^3/ul RBC 5.67 H (4.00-5.40) 10^6/ul Hgb 16.8 (14.0-18.0) g/dl Hct 48 (42-52) % MCV 85 (80-94) fL MCH 30 (27-31) pg MCHC 35 (31-36) g/dl RDW 13 (10.5-15) % Plt Count 229 (150-450) 10^3/ul MPV 7.6 (7.4-10.4) um3 Neut % (Auto) 42.7 (38-83) % Lymph % (Auto) 45.0 (25-47) % [place] % (Auto) 9.1 H (0-7) % Eos % (Auto) 2.3 (0-6) % Baso % (Auto) 0.9 (0-2) % Absolute Neuts (auto) 2.8 (1.5-7.7) 10^3/ul Absolute Lymphs (auto) 3.0 (1.0-4.8) 10^3/ul Absolute Monos (auto) 0.6 (0-0.8) 10^3/ul Absolute Eos (auto) 0.2 (0-0.6) 10^3/ul Absolute Basos (auto) 0.1 (0-0.2) 10^3/ul Absolute Nucleated RBC 0 10^3/ul Nucleated RBC % 0.2 INR (Anticoag Therapy) 0.96 (0.77-1.02) APTT 30.1 (26.0-36.3) seconds Sodium 138 (135-145) mmol/L Potassium 3.9 (3.5-5.0) mmol/L Chloride 105 (101-111) mmol/L Carbon Dioxide 27 (22-32) mmol/L Anion Gap 6 (2-11) mmol/L BUN 22 (6-24) mg/dL Creatinine 1.03 (0.67-1.17) mg/dL Est GFR ( Amer) 101.3 (>60) Est GFR (Non-Af Amer) 83.7 (>60) BUN/Creatinine Ratio 21.4 H (8-20) Glucose 104 H (70-100) mg/dL Calcium 9.3 (8.6-10.3) mg/dL Total Bilirubin 0.50 (0.2-1.0) mg/dL AST 19 (13-39) U/L ALT 21 (7-52) U/L Alkaline Phosphatase 40 (34-104) U/L C-Reactive Protein 1.72 (<8.01) mg/L Total Protein 6.8 (6.4-8.9) g/dL Albumin 4.2 (3.2-5.2) g/dL Globulin 2.6 (2-4) g/dL Albumin/Globulin Ratio 1.6 (1-3) Amylase 54 (29-103) U/L Lipase 15 (11.0-82.0) U/L Result Diagrams: 02/27/18 00:07 02/27/18 00:07 Lab Statement: Any lab studies that have been ordered have been reviewed, and results considered in the medical decision making process. - CT CT Head CT Interpretation: No Acute Changes CT Interpretation Completed By: Radiologist - No acute abnormality. This report was reviewed by ED physician. Re-Evaluation - Re-Evaluation First Eval Re-Evaluation Time: 01:24 Change: Improved Comment: Patient reports feeling better. He will be discharged to home and will follow up with PCP in 1-2 days. Patient is agreeable with plan. Headache Course/Dx - Course Assessment/Plan: Patient is a 32 y/o M w/ c/o MORENO, dizziness, N/V, decreased appetite. He states he has had HAs, dizziness for past few months, N/V and decreased appetite for past four days. Pt under care of Dr. Vegas for chronic MORENO. The patient reports taking Tylenol this morning with no relief of Sx. On triage, pain is rated 7/10 and nothing is noted to aggravate/alleviate Sx. Patient also takes paroxetine for depresion and anxiety and Imitrex. Physical exam showed cervical paraspinal tenderness. CT Head was normal. During ED course , patient was given fluids, metoclopramide Hcl 10 mg IV SLOW PUSH ONCE, ketorolac tromethamine 30 mg IV PUSH ED ONCE, and diphenhydramine Hcl 25 mg IV ED ONCE. Labs showed RBC 5.67 H, [place] % 9.1 H, BUN/creatinine ratio 21.4 H, and glucose 104 H. Patient reports feeling better at 0124 and will be discharged to home with Dx of headache. He will follow up with PCP in 1-2 days. Patient is agreeable with plan. - Diagnoses Provider Diagnoses: Headache Discharge - Sign-Out/Discharge Documenting (check all that apply): Patient Departure - discharge - Discharge Plan Condition: Stable Disposition: HOME Patient Education Materials: Acute Headache (ED) Referrals: Tanner Perez MD [Primary Care Provider] - 2 Days Additional Instructions: Follow up with primary care physician in 1-2 days. Return to ED for any changing or worsening symptoms.
[2018-02-27 02:01] VITALS: BP 111/72
--- NOTE | 2018-02-27 08:05 | RAD ---
INDICATION: Headaches COMPARISON: None TECHNIQUE: Noncontrast axial source images were acquired from the skull base to the vertex. FINDINGS: Ventricles/sulci: The ventricles and cisterns are normal in size and configuration for age. Brain parenchyma: There is no focal parenchymal finding, evidence of intracranial mass, or intracranial mass effect. Intracranial hemorrhage:None. Extra-axial spaces: There are no abnormal extra axial fluid collections or evidence of extra-axial mass. Calvarium: There is no calvarial fracture or other calvarial abnormality. Scalp: There is no evidence of scalp or extracalvarial soft tissue abnormality. Paranasal sinuses/mastoid: The paranasal sinuses and mastoid air cells are clear. Other: None. IMPRESSION: NEGATIVE EXAMINATION
== END 2018-02-27 02:04 | disposition home or self-care (01) ==
LOC: ED 22:14
DX: R51 Headache (principal); R42 Dizziness and giddiness; R11.2 Nausea with vomiting, unspecified; Z88.0 Allergy status to penicillin; F41.0 Panic disorder [episodic paroxysmal anxiety]; Z82.49 Family history of ischemic heart disease and other diseases of the circulatory system; Z87.891 Personal history of nicotine dependence
CPT/HCPCS: 36415; 70450; 80053; 82150; 83690; 85025; 85610; 85730; 86140; 96374; 96375; 99284; J1200; J1885; J2765

== ENCOUNTER 2018-06-21 10:41 | Emergency (ER) | payer SELFPAY ==
[2018-06-21 10:49] VITALS: BP 124/83
--- NOTE | 2018-06-21 11:01 | UC ---
Respiratory Complaint HPI - HPI Summary HPI Summary: Patient presents to urgent care with 12 hours of cough, wheeze, nausea, and fatigue. Patient states he felt warm last night but did not take his temperature. Patient denies chills. Patient's significant other with bronchitis last week. Patient states little production with coughing. Patient does have a wheeze. Patient to go to work today but left to come here. Patient did not take any medications for his symptoms. Patient does not smoke cigarettes. Patient's medications reviewed this visit - History of Current Complaint Chief Complaint: UCRespiratory Stated Complaint: COUGH,CONGESTION Time Seen by Provider: 06/21/18 10:50 Hx Obtained From: Patient Onset/Duration: Sudden Onset Timing: Constant Severity Initially: Mild Severity Currently: Mild Pain Intensity: 2 Pain Scale Used: 0-10 Numeric Character: Cough: Nonproductive - Allergies/Home Medications Allergies/Adverse Reactions: Allergies Allergy/AdvReac Type Severity Reaction Status Date / Time amoxicillin Allergy Rash Verified 06/21/18 10:48 Penicillins Allergy Rash Verified 06/21/18 10:48 PMH/Surg Hx/FS Hx/Imm Hx Previously Healthy: Yes Other History Of: Negative For: Anticoagulant Therapy - Surgical History Surgical History: Yes Surgery Procedure, Year, and Place: Colonoscopy and Endoscopy, 2015, [place]; Lipoma x 5; - Family History Known Family History: Positive: Cardiac Disease - mom's sister with MO at age 40 , grandfather with MO in his late 40's, Other - celiac disease - Social History Occupation: Employed Full-time Lives: With Family Alcohol Use: Occasionally Substance Use Type: None Substance Use Comment - Amount & Last Used: stopped 3 weeks ago Smoking Status (MU): Light Every Day Tobacco Smoker Type: Cigarettes Amount Used/How Often: 08/01 PPD "I'm cuttin' back." Length of Time of Smoking/Using Tobacco: Since Age 16 Have You Smoked in the Last Year: Yes When Did the Patient Quit Smoking/Using Tobacco: 4 days ago Household Exposure Type: Cigarettes Review of Systems All Other Systems Reviewed And Are Negative: Yes Constitutional: Positive: Fever - tactile Eyes: Positive: Negative ENT: Positive: Negative Respiratory: Positive: Cough Physical Exam - Summary Physical Exam Summary: Vital Signs Reviewed: Yes A+Ox3, no distress Eyes: Conjunctiva Clear, JOVAN. EOM intact and full ENT: Hearing grossly normal TM x 2 clear, turbinates inflammed and boggy, mild PND, mmoist, uvula midline, no exudate, no erythema Neck: Positive: Supple. no LA Respiratory: Positive: No respiratory distress, No accessory muscle use + scattered wheeze, no rhonci, no accessory muscle use Cardiovascular: RRR nl s1, s2 no m/r CBT <2 sec abd soft + BS nt/nd no guarding, no distension Musculoskeletal Exam: PITTS x 4 without difficulty Strength Intact, ROM Intact Neurological: Positive: Alert, + sensation throughout Psychological: Positive: Normal Response To Family Skin: Positive: no rash, no ecchymosis Triage Information Reviewed: Yes Vital Signs: Initial Vital Signs Temp 97.8 F 06/21/18 10:45 Pulse 75 06/21/18 10:45 Resp 18 06/21/18 10:45 BP 124/83 06/21/18 10:45 Pulse Ox 98 06/21/18 10:45 UC Diagnostic Evaluation - Laboratory O2 Sat by Pulse Oximetry: 98 Re-Evaluation - Re-Evaluation First Eval Re-Evaluation Time: 11:35 Change: Improved Comment: wheezing resolved. pt states feels improved. will d/c with acute bronchitis, URI. work note. secretion precatuion. humified air. return precaution Respiratory Course/Dx - Course Course Of Treatment: Patient presents with 12 hours of nonproductive cough, wheeze, fatigue, and nausea. No vomiting. Patient without documented fevers foot was tactile warm last night. No medications taken. Patient left work and came here. On exam vital signs are stable. Patient noted to have some scattered wheezing. Patient without any respiratory distress. We'll give DuoNeb and reassessed. Discussed with patient viral versus bacterial etiologies. Patient comfortable in agreement with plan. - Differential Dx/Diagnosis Provider Diagnosis: Acute bronchitis, URI (upper respiratory infection) Discharge - Sign-Out/Discharge Documenting (check all that apply): Patient Departure All imaging exams completed and their final reports reviewed: No Studies - Discharge Plan Condition: Stable Disposition: HOME Prescriptions: Albuterol HFA INHALER* [Ventolin HFA Inhaler*] 2 puff INH Q4H PRN #1 mdi PRN Reason: wheeze Patient Education Materials: Acute Bronchitis (ED), Upper Respiratory Infection (ED) Forms: *Work Release Referrals: Tanner Perez MD [Primary Care Provider] - Additional Instructions: -Use your albuterol puffer - 2 puffs ever 4-6 hours for the next 2 days - then as needed -Stay well hydrated - avoid excess caffeine and all alcohol - eat regular, healthy meals - get plenty of restful sleep - humidify the air in the room where you sleep - boil water, run a hot steam shower, vaporizer, cups of water by heat register - okay to take over the counter decongestant and cough medication (Claritin-D, Ashley-d, Sudafed, Zyrtec-D) -- These infections are spread by secretions - do NOT share eating or drinking utensils - clean items you share with other people such as cell phones, computer mouse, TV remote, computer tablets,etc.. Once you start to feel, change your toothbrush and your pillowcase. -Contact your doctor to arrange a follow-up appointment this week. Call your doctor, return here or go to the emergency department with any questions or concerns - Billing Disposition and Condition Condition: STABLE Disposition: Home
[2018-06-21] MEDS ORDERED: Albuterol/Ipratropium NEB.SOL* Albuterol 2.5 MG/Ipratropium 0.5 MG 3 ML INH ONE (11:06)
== END 2018-06-21 11:40 | disposition home or self-care (01) ==
LOC: UCEAST 10:41
DX: J20.9 Acute bronchitis, unspecified (principal); J06.9 Acute upper respiratory infection, unspecified; Z88.0 Allergy status to penicillin; F17.210 Nicotine dependence, cigarettes, uncomplicated
CPT/HCPCS: 99212; A9270-GY; G0463

== ENCOUNTER 2018-07-10 15:51 | Emergency (ER) | payer SELFPAY ==
[2018-07-10 16:07] VITALS: BP 129/73
--- NOTE | 2018-07-10 16:39 | UC ---
Complaint Male HPI - HPI Summary HPI Summary: The patient is a 33-year-old male who has had a 2 day history of increased frequency of urination. He states that when he urinated this morning he had bright red blood in his urine. He has had some mild to moderate left back pain as well as left groin pain. He states that sometimes he has pain radiating into his left testicle. He has had no problems initiating his stream of urine. He states that about a year ago he was treated for prostatitis. States she was told that his prostate was markedly enlarged. He had to follow-up with Dr. Erazo. He said that initially his PSA was elevated. He states he was followed at Dr. Erazo's office and repeat levels were back in the normal range. He is also concerned as he hasn't been able to achieve an erection and over week. - History of Current Complaint Chief Complaint: UCGU Stated Complaint: PERSONAL Time Seen by Provider: 07/10/18 16:29 Hx Obtained From: Patient Onset/Duration: Gradual Onset, Lasting Days Timing: Constant Severity Initially: Mild Severity Currently: Severe Pain Intensity: 9 Pain Scale Used: 0-10 Numeric Location: Flank Character: Colicy Aggravating Factor(s): Nothing Alleviating Factor(s): Nothing Associated Signs And Symptoms: Positive: Back Pain, Hematuria. Negative: Dysuria, Constipation, Blood in Stool, Rectal Pain, Appetite, Nausea, Vomiting( # Of Episodes =), Penile Swelling, Penile Discharge - Risk Factors Testicular Torsion: Negative - Allergies/Home Medications Allergies/Adverse Reactions: Allergies Allergy/AdvReac Type Severity Reaction Status Date / Time amoxicillin Allergy Rash Verified 07/10/18 16:00 Penicillins Allergy Rash Verified 07/10/18 16:00 PMH/Surg Hx/FS Hx/Imm Hx Previously Healthy: Yes Other History Of: Negative For: Anticoagulant Therapy - Surgical History Surgical History: Yes Surgery Procedure, Year, and Place: Colonoscopy and Endoscopy, 2016, [place]; Lipoma x 5; \. R hand fracture with pin placement 2016 - Family History Known Family History: Positive: Cardiac Disease - mom's sister with ID at age 40 , grandfather with ID in his late 40's, Other - celiac disease - Social History Alcohol Use: Occasionally Substance Use Type: None Substance Use Comment - Amount & Last Used: stopped 3 weeks ago Smoking Status (MU): Light Every Day Tobacco Smoker Type: Cigarettes Amount Used/How Often: 1 ppd Length of Time of Smoking/Using Tobacco: Since Age 16 Have You Smoked in the Last Year: Yes When Did the Patient Quit Smoking/Using Tobacco: 4 days ago Household Exposure Type: Cigarettes Review of Systems All Other Systems Reviewed And Are Negative: Yes Constitutional: Positive: Negative Skin: Positive: Negative Eyes: Positive: Negative ENT: Positive: Negative Respiratory: Positive: Negative Cardiovascular: Positive: Negative Gastrointestinal: Positive: Negative Genitourinary: Positive: Hematuria, Frequency Motor: Positive: Negative Neurovascular: Positive: Negative Musculoskeletal: Positive: Negative Neurological: Positive: Negative Psychological: Positive: Negative Physical Exam Triage Information Reviewed: Yes Appearance: Well-Appearing, No Pain Distress, Well-Nourished Vital Signs: Initial Vital Signs Temp 98.3 F 07/10/18 16:01 Pulse 93 07/10/18 16:01 Resp 18 07/10/18 16:01 BP 129/73 07/10/18 16:01 Pulse Ox 97 07/10/18 16:01 Vital Signs Reviewed: Yes Eyes: Positive: Conjunctiva Clear ENT: Positive: Hearing grossly normal. Negative: Nasal congestion, Nasal drainage, Trismus, Muffled voice, Hoarse voice, Sinus tenderness Neck: Positive: Supple, Nontender, No Lymphadenopathy Respiratory: Positive: Lungs clear, Normal breath sounds, No respiratory distress Cardiovascular: Positive: RRR Abdomen Description: Positive: CVA Tenderness (L). Negative: Nontender - left lower quadrient tenderness Bowel Sounds: Positive: Present Male Genital Exam: Positive: No Hernia, Testicular Tenderness (L) - tender left epidydimus Musculoskeletal: Positive: ROM Intact, No Edema Neurological: Positive: Alert Psychological Exam: Normal Diagnostics - Laboratory Diagnostic Studies Completed/Ordered: UA no leuks or RBCs - Radiology No standard instances Radiology Interpretation Completed By: Radiologist Summary of Radiographic Findings: NEG Complaint Male Course/Dx - Differential Dx/Diagnosis Provider Diagnosis: Left epididymitis, Hematuria, Erectile dysfunction Discharge - Sign-Out/Discharge Documenting (check all that apply): Patient Departure All imaging exams completed and their final reports reviewed: Yes - Discharge Plan Condition: Stable Disposition: HOME Prescriptions: DOXYcycline CAP(*) [DOXYcycline 100MG CAP(*)] 100 mg PO BID #14 cap Ibuprofen TAB* [Motrin TAB*] 600 mg PO Q6H PRN #40 tab PRN Reason: Pain Patient Education Materials: Epididymitis (ED), Hematuria (ED) Forms: *Work Release Referrals: Antonio Erazo MD [Medical Doctor] - As Soon As Possible Additional Instructions: TO ER FOR NEW OR WORSENING SYMPTOMS I SUGGEST YOU SEE YOUR UROLOGIST ABOUT LEFT TESTICULAR PAIN HEMATURIA (BLOOD IN URINE) ERECTILE DYSFUNCTION l - Billing Disposition and Condition Condition: STABLE Disposition: Home
[2018-07-10] MEDS ORDERED: Ibuprofen TAB* 600 MG PO ONE (17:51)
--- NOTE | 2018-07-12 07:20 | UC ---
- Progress Note Progress Note: UC no growth no change ljj 07/12/18 Course/Dx - Diagnoses Provider Diagnoses: Left epididymitis, Hematuria, Erectile dysfunction Discharge - Sign-Out/Discharge Documenting (check all that apply): Post-Discharge Follow Up All imaging exams completed and their final reports reviewed: Yes - Discharge Plan Condition: Stable Disposition: HOME Prescriptions: DOXYcycline CAP(*) [DOXYcycline 100MG CAP(*)] 100 mg PO BID #14 cap Ibuprofen TAB* [Motrin TAB*] 600 mg PO Q6H PRN #40 tab PRN Reason: Pain Patient Education Materials: Epididymitis (ED), Hematuria (ED) Forms: *Work Release Referrals: Antonio Erazo MD [Medical Doctor] - As Soon As Possible Additional Instructions: TO ER FOR NEW OR WORSENING SYMPTOMS I SUGGEST YOU SEE YOUR UROLOGIST ABOUT LEFT TESTICULAR PAIN HEMATURIA (BLOOD IN URINE) ERECTILE DYSFUNCTION l - Billing Disposition and Condition Condition: STABLE Disposition: Home
== END 2018-07-10 18:04 | disposition home or self-care (01) ==
LOC: UCEAST 15:51
DX: F17.210 Nicotine dependence, cigarettes, uncomplicated (principal); N45.1 Epididymitis; R31.9 Hematuria, unspecified; N52.9 Male erectile dysfunction, unspecified; Z88.0 Allergy status to penicillin
CPT/HCPCS: 74176; 81003; 87086; 87491; 87591; 99212; A9270-GY; G0463

== ENCOUNTER 2018-07-22 11:56 | Emergency (ER) | payer SELFPAY ==
--- NOTE | 2018-07-22 12:15 | UC ---
Throat Pain/Nasal Rivera HPI - HPI Summary HPI Summary: this morning started w/ sore throat and upper sinus pain. no other symptoms. sick contact at home. - History of Current Complaint Stated Complaint: SORE THROAT, HEADACHE Time Seen by Provider: 07/22/18 12:14 Hx Obtained From: Patient Onset/Duration: Sudden Onset - Allergies/Home Medications Allergies/Adverse Reactions: Allergies Allergy/AdvReac Type Severity Reaction Status Date / Time amoxicillin Allergy Rash Verified 07/22/18 12:17 Penicillins Allergy Rash Verified 07/22/18 12:17 PMH/Surg Hx/FS Hx/Imm Hx Previously Healthy: Yes Other History Of: Negative For: Anticoagulant Therapy - Surgical History Surgical History: Yes Surgery Procedure, Year, and Place: Colonoscopy and Endoscopy, 2016, [place]; Lipoma x 5; \. R hand fracture with pin placement 2016 - Family History Known Family History: Positive: Cardiac Disease - mom's sister with MT at age 40 , grandfather with MT in his late 40's, Other - celiac disease - Social History Alcohol Use: Occasionally Substance Use Type: None Substance Use Comment - Amount & Last Used: stopped 3 weeks ago Smoking Status (MU): Light Every Day Tobacco Smoker Type: Cigarettes Amount Used/How Often: 1 ppd Length of Time of Smoking/Using Tobacco: Since Age 16 Have You Smoked in the Last Year: Yes When Did the Patient Quit Smoking/Using Tobacco: 4 days ago Household Exposure Type: Cigarettes Review of Systems All Other Systems Reviewed And Are Negative: Yes Constitutional: Positive: Negative Skin: Positive: Negative ENT: Positive: Sore Throat, Sinus Pain/Tenderness. Negative: Ear Ache, Nasal Discharge, Sinus Congestion Respiratory: Positive: Negative Cardiovascular: Positive: Negative Neurological: Negative: Headache Physical Exam Triage Information Reviewed: Yes Appearance: Well-Appearing Vital Signs Reviewed: Yes Eyes: Positive: Conjunctiva Clear ENT: Positive: Pharynx normal, TMs normal, Uvula midline. Negative: Sinus tenderness Respiratory Exam: Normal Cardiovascular Exam: Normal Skin Exam: Normal Throat Pain/Nasal Course/Dx - Course Assessment/Plan: Acute sore throat started this AM in a pt who smokes. Assoc. w / upper sinus pain but exam did not demonstrate sinus tenderness. rapid strep neg, afebrile. viral etiology. self limiting. comfort measures discussed. - Differential Dx/Diagnosis Differential Diagnosis/HQI/PQRI: Pharyngitis, Sinusitis, Tonsillitis, URI Provider Diagnosis: Viral pharyngitis Discharge - Sign-Out/Discharge Documenting (check all that apply): Patient Departure All imaging exams completed and their final reports reviewed: No Studies - Discharge Plan Condition: Good Disposition: HOME Patient Education Materials: Pharyngitis (ED) Forms: *Work Release Referrals: Tanner Perez MD [Primary Care Provider] - Additional Instructions: if not improving please follow up with your pcp - Billing Disposition and Condition Condition: GOOD Disposition: Home
[2018-07-22 12:17] VITALS: BP 128/68
== END 2018-07-22 12:47 | disposition home or self-care (01) ==
LOC: UCEAST 11:56
DX: J02.9 Acute pharyngitis, unspecified (principal); F17.210 Nicotine dependence, cigarettes, uncomplicated; Z88.0 Allergy status to penicillin
CPT/HCPCS: 87651; 99211; G0463

== ENCOUNTER 2018-09-25 18:07 | Emergency (ER) | payer SELFPAY ==
--- NOTE | 2018-09-25 18:59 | ED ---
GI/ HPI - HPI Summary HPI Summary: 33-year-old male presents with stuffy nose and abdominal pain today. He admits to some loose stool. He denies any nausea vomiting. No chest pain or shortness breath. No cough. No sore throat. He has no medical conditions. he states he feels ill. Did not try anything for his symptoms. never had this before. denies any headache, ear pain or dizziness. - History of Current Complaint Chief Complaint: EDAbdPain Time Seen by Provider: 09/25/18 18:41 Stated Complaint: STOMACHACHE/STUFFY NOSE PER PT Pain Intensity: 6 - Allergy/Home Medications Allergies/Adverse Reactions: Allergies Allergy/AdvReac Type Severity Reaction Status Date / Time amoxicillin Allergy Rash Verified 09/25/18 18:54 Penicillins Allergy Rash Verified 09/25/18 18:54 Home Medications: Home Medications NK [No Home Medications Reported] 09/25/18 [History Confirmed 09/25/18] PMH/Surg Hx/FS Hx/Imm Hx Endocrine/Hematology History: Denies: Hx Anticoagulant Therapy, Hx Diabetes Cardiovascular History: Reports: Other Cardiovascular Problems/Disorders - H/O BRADYCARDIA Denies: Hx Pacemaker/ICD Comment Only: Hx Hypertension - bradycardia Jul 2015-[facility] Respiratory History: Denies: Hx Asthma History: Denies: Hx Dialysis Sensory History: Denies: Hx Hearing Aid Neurological History: Denies: Hx CVA Psychiatric History: Reports: Hx Anxiety, Hx Panic Disorder - TAKES MEDICATION - Surgical History Surgery Procedure, Year, and Place: Colonoscopy and Endoscopy, 2016, [place]; Lipoma x 5; \. R hand fracture with pin placement 2015 - Immunization History Immunizations Up to Date: Yes Infectious Disease History: No Infectious Disease History: Denies: History Other Infectious Disease, Traveled Outside the [place] in Last 30 Days - Family History Known Family History: Positive: Cardiac Disease - mom's sister with [place] at age 40 , grandfather with [place] in his late 40's, Other - celiac disease - Social History Alcohol Use: Occasionally Hx Substance Use: No Substance Use Type: Reports: None Substance Use Comment - Amount & Last Used: stopped 3 weeks ago Hx Tobacco Use: Yes Smoking Status (MU): Light Every Day Tobacco Smoker Type: Cigarettes Amount Used/How Often: 1 ppd Length of Time of Smoking/Using Tobacco: Since Age 16 Have You Smoked in the Last Year: Yes Review of Systems Negative: Fever Positive: Nasal Discharge Negative: Chest Pain Negative: Shortness Of Breath Positive: Abdominal Pain, Diarrhea. Negative: Vomiting, Nausea All Other Systems Reviewed And Are Negative: Yes Physical Exam Triage Information Reviewed: Yes Vital Signs On Initial Exam: Initial Vitals Temp Pulse Resp BP Pulse Ox 98.2 F 83 16 147/94 97 09/25/18 18:23 09/25/18 18:23 09/25/18 18:23 09/25/18 18:23 09/25/18 18:23 Vital Signs Reviewed: Yes Appearance: Positive: Well-Appearing Skin: Positive: Warm, Dry Head/Face: Positive: Normal Head/Face Inspection Eyes: Positive: Normal, EOMI, JOVAN, Conjunctiva Clear ENT: Positive: Normal ENT inspection, Pharynx normal, Nasal congestion, TMs normal Respiratory/Lung Sounds: Positive: Clear to Auscultation, Breath Sounds Present Cardiovascular: Positive: Normal, RRR Abdomen Description: Positive: Soft, Other: - tenderness RUQ pain Bowel Sounds: Positive: Present Musculoskeletal: Positive: Normal Neurological: Positive: Normal Psychiatric: Positive: Normal Diagnostics - Vital Signs Vital Signs Temp Pulse Resp BP Pulse Ox 09/25/18 18:23 98.2 F 83 16 147/94 97 - Laboratory Result Diagrams: 09/25/18 19:35 09/25/18 19:35 Lab Statement: Any lab studies that have been ordered have been reviewed, and results considered in the medical decision making process. - Ultrasound No standard instances Ultrasound Interpretation Completed By: Radiologist Summary of Ultrasound Findings: IMPRESSION: Normal right upper quadrant ultrasound. No gallstones. GIGU Course/Dx - Course Course Of Treatment: 33-year-old male presents with stuffy nose and abdominal pain today. He admits to some loose stool. He denies any nausea vomiting. No chest pain or shortness breath. No cough. No sore throat. He has no medical conditions. he states he feels ill. Did not try anything for his symptoms. On exam has sinus congestion noted. Pharynx normal. Lungs to auscultation. Mild tenderness in the right upper quadrant. wbc normal. crp normal. flu, strept and mono neg. gallbladder ultrasound normal. discussed that likely viral syndrome and to treat supportatively. patient understand and agrees with plan. - Diagnoses Differential Diagnoses - Male: Gall Bladder Disease, Gastroenteritis (Viral), Other - mono Provider Diagnoses: Sinus congestion, Abdominal pain Discharge - Sign-Out/Discharge Documenting (check all that apply): Patient Departure Patient Received Moderate/Deep Sedation with Procedure: No - Discharge Plan Condition: Good Disposition: HOME Patient Education Materials: Upper Respiratory Infection (ED) Forms: *Work Release Referrals: Tanner Perez MD [Primary Care Provider] - Additional Instructions: use sudafed daily as needed for sinus congestion use nasal saline in nose Take tyenlol or ibuprofen every 6 hours as needed for pain drink plenty of fluids Follow up with primary Return to ED if develop any new or worsening symptoms - Billing Disposition and Condition Condition: GOOD Disposition: Home
[2018-09-25 19:41] LABS: ABS Basophils 0.1 10^3/ul (0-0.2); ABS Eosinophils 0.1 10^3/ul (0-0.6); ABS Lymphocytes 2.7 10^3/ul (1.0-4.8); ABS Monocytes 0.6 10^3/ul (0-0.8); ABS Neutrophils 4.1 10^3/ul (1.5-7.7); ABS Nucleated RBC 0 10^3/ul; Eosinophil % 1.5 %; Hematocrit 50 % (42-52); Hemoglobin 17.1 g/dl (14.0-18.0); Lymphocyte % 35.4 %; Mean Corpuscular HGB Conc 34 g/dl (31-36); Mean Corpuscular Hemoglobin 29 pg (27-31); Mean Corpuscular Volume 85 fL (80-94); Mean Platelet Volume 7.7 fL (7.4-10.4); Nucleated Red Blood Cells % 0; Platelet Count 239 10^3/ul (150-450); Red Blood Count 5.93 10^6/ul (4.00-5.40); Red Cell Distribution Width 13 % (10.5-15); White Blood Count 7.6 10^3/ul (3.5-10.8)
[2018-09-25 19:43] LABS: Influenza A Molecular NEGATIVE (Negative); Influenza B Molecular NEGATIVE (Negative)
[2018-09-25 20:03] LABS: ALT 22 U/L (7-52); AST 20 U/L (13-39); Albumin 4.4 g/dL (3.2-5.2); Albumin/Globulin Ratio 1.6 (1-3); Alkaline Phosphatase 44 U/L (34-104); Anion Gap 6 mmol/L (2-11); BUN/Creatinine Ratio 17.2 (8-20); Blood Urea Nitrogen 16 mg/dL (6-24); C Reactive Protein < 1.00 mg/L (<8.01); CO2 Carbon Dioxide 30 mmol/L (22-32); Calcium 9.8 mg/dL (8.6-10.3); Chloride 102 mmol/L (101-111); EGFR African American 113.2 (>60); EGFR Non-African American 93.6 (>60); Globulin 2.7 g/dL (2-4); Glucose 88 mg/dL (70-100); Potassium 4.2 mmol/L (3.5-5.0); Sodium 138 mmol/L (135-145); Total Protein 7.1 g/dL (6.4-8.9)
[2018-09-25 21:19] VITALS: BP 145/79
== END 2018-09-25 21:18 | disposition home or self-care (01) ==
LOC: ED 18:07
DX: R09.81 Nasal congestion (principal); R10.9 Unspecified abdominal pain; R19.7 Diarrhea, unspecified; F17.210 Nicotine dependence, cigarettes, uncomplicated; Z86.79 Personal history of other diseases of the circulatory system; Z88.0 Allergy status to penicillin
CPT/HCPCS: 36415; 76705; 80053; 83690; 85025; 86140; 86308; 87651; 99282

== ENCOUNTER 2018-09-27 08:32 | Emergency (ER) | payer SELFPAY ==
[2018-09-27 08:40] VITALS: BP 118/78
--- NOTE | 2018-09-27 10:59 | UC ---
Abdominal Pain Male HPI - HPI Summary HPI Summary: Patient here with 3 days of epigastric abdominal pain and loose stools. Was seen on day 1 in the [facility] [place] [facility]. Had unremarkable gallbladder ultrasound as well as negative flu swab, strep test and Monospot. CBC , lipase and CRP were within normal limits. Comes in today complaining of increase in number of watery stools. States he had 3-4 episodes overnight. None in the last 3 hours. No fever, no nausea/vomiting. Appetite is down. - History of Current Complaint Chief Complaint: UCAbdominalPain Stated Complaint: STOMACH ACHE Time Seen by Provider: 09/27/18 10:19 Hx Obtained From: Patient Onset/Duration: Gradual Onset, Lasting Days, Still Present Timing: Constant Severity Initially: Moderate Severity Currently: Moderate Pain Intensity: 5 Pain Scale Used: 0-10 Numeric Location: Epigastric Radiates: Yes Radiates to: Back Character: Sharp Aggravating Factor(s): Nothing Alleviating Factor(s): Nothing Associated Signs And Symptoms: Positive: Back Pain, Decreased Appetite, Diarrhea. Negative: Diaphoresis, Fever, Constipation, Blood in Stool, Urinary Symptoms, Vomiting - Allergies/Home Medications Allergies/Adverse Reactions: Allergies Allergy/AdvReac Type Severity Reaction Status Date / Time amoxicillin Allergy Rash Verified 09/27/18 08:41 Penicillins Allergy Rash Verified 09/27/18 08:41 Home Medications: Home Medications PARoxetine HCL TAB* [Paxil TAB*] 10 mg PO DAILY 09/27/18 [History Confirmed 03/10] PMH/Surg Hx/FS Hx/Imm Hx Previously Healthy: Yes Other History Of: Negative For: Anticoagulant Therapy - Surgical History Surgical History: Yes Surgery Procedure, Year, and Place: Colonoscopy and Endoscopy, 2016, [place]; Lipoma x 5; \. R hand fracture with pin placement 2016 - Family History Known Family History: Positive: Cardiac Disease - mom's sister with [place] at age 40 , grandfather with [place] in his late 40's, Other - celiac disease - Social History Alcohol Use: Occasionally Substance Use Type: None Substance Use Comment - Amount & Last Used: stopped 3 weeks ago Smoking Status (MU): Light Every Day Tobacco Smoker Type: Cigarettes Amount Used/How Often: 1 ppd Length of Time of Smoking/Using Tobacco: Since Age 16 Have You Smoked in the Last Year: Yes When Did the Patient Quit Smoking/Using Tobacco: 4 days ago Household Exposure Type: Cigarettes Review of Systems All Other Systems Reviewed And Are Negative: Yes Constitutional: Positive: Negative Respiratory: Positive: Negative Cardiovascular: Positive: Negative Gastrointestinal: Positive: Abdominal Pain, Diarrhea Genitourinary: Positive: Negative Physical Exam Triage Information Reviewed: Yes Appearance: Well-Appearing, No Pain Distress, Well-Nourished Vital Signs: Initial Vital Signs Temp 98 F 09/27/18 08:38 Pulse 99 09/27/18 08:38 Resp 20 09/27/18 08:38 BP 118/78 09/27/18 08:38 Pulse Ox 98 09/27/18 08:38 Vital Signs Reviewed: Yes Eyes: Positive: Conjunctiva Clear ENT: Positive: Hearing grossly normal, Pharynx normal, TMs normal Neck: Positive: Supple, Nontender, No Lymphadenopathy Respiratory Exam: Normal Cardiovascular Exam: Normal Abdomen Description: Positive: Soft, Other: - TTP EPIGASTRIC AREA. NO REBOUND OR RIGIDITY. Negative: CVA Tenderness (R), CVA Tenderness (L), Distended, Guarding Bowel Sounds: Positive: Present Musculoskeletal: Positive: No Edema Neurological: Positive: Alert Psychological: Positive: Age Appropriate Behavior Skin: Negative: Rashes Abd Pain Male Course/Dx - Course Course Of Treatment: PATIENT WITH WORSENING EPIGASTRIC ABDOMINAL PAIN OVER THE PAST 2 DAYS. ED WORKUP WAS UNREMARKABLE. WE WILL REPEAT CBC AND LIPASE TODAY TO ENSURE STILL WITHIN NORMAL LIMITS. ADVISED HOME WITH CLEAR LIQUID DIET. SX WILL HOPEFULLY IMPROVE OVER THE NEXT FEW DAYS. TO THE ER WITHOUT FAIL IF SYMPTOMS CONTINUE TO WORSEN. - Differential Dx/Clinical Impression Provider Diagnosis: Epigastric abdominal pain Discharge - Sign-Out/Discharge Documenting (check all that apply): Patient Departure All imaging exams completed and their final reports reviewed: No Studies - Discharge Plan Condition: Stable Disposition: HOME Patient Education Materials: Abdominal Pain (ED) Forms: *Work Release Referrals: Tanner Perez MD [Primary Care Provider] - 1 Week Additional Instructions: ABDOMINAL PAIN: There are many causes of abdominal pain. Pain can mean a serious problem requiring surgery (such as appendicitis), or an innocent problem which goes away on its own (such as a viral infection). Often, time must pass to determine the cause of pain. The physician does not feel that hospitalization is necessary, at present. Conditions may change, however, within the next 24 hours. GO TO THE ER WITHOUT FAIL IF ANY OF THE FOLLOWING OCCUR: 1) Pain which becomes more severe, steady, or becomes concentrated in one specific area. Also, pain which is more severe with movement or coughing. 2) Vomiting which persists or becomes more frequent. 3) Blood in the vomitus, urine, or bowel movements. Blood in the stool may have a tarry or black appearance. 4) Shaking chills or fever greater than 100 degrees F. 5) The abdomen becomes more distended or swollen. 6) Bowel movements cease. 7) Failure to improve as expected. BLOOD COUNT, PANCREATIC ENZYMES REPEATED TODAY. WE WILL CALL YOU WITH ANY ABNORMAL/CONCERNING RESULTS. ENSURE ADEQUATE HYDRATION. STICK TO MOSTLY CLEAR LIQUIDS UNTIL YOUR SYMPTOMS ARE IMPROVED. AVOID CAFFEINE, DAIRY, GREASY, SPICY FOODS. ONCE YOU ARE TOLERATING CLEAR LIQUIDS YOU CAN ADVANCE TO SIMPLE, BLAND FOODS. GO TO THE ER WITHOUT FAIL IF YOU DEVELOP WORSENING PAIN, FEVER, NAUSEA/VOMITING , BLEEDING FROM ANYWHERE OR ANY OTHER CONCERNING SYMPTOMS. - Billing Disposition and Condition Condition: STABLE Disposition: Home
[2018-09-27 16:23] LABS: ABS Basophils 0.1 10^3/ul (0-0.2); ABS Eosinophils 0.1 10^3/ul (0-0.6); ABS Lymphocytes 2.5 10^3/ul (1.0-4.8); ABS Monocytes 0.7 10^3/ul (0-0.8); ABS Neutrophils 3.8 10^3/ul (1.5-7.7); ABS Nucleated RBC 0 10^3/ul; Eosinophil % 1.6 %; Hematocrit 51 % (42-52); Hemoglobin 17.6 g/dl (14.0-18.0); Lymphocyte % 34.9 %; Mean Corpuscular HGB Conc 34 g/dl (31-36); Mean Corpuscular Hemoglobin 30 pg (27-31); Mean Corpuscular Volume 86 fL (80-94); Mean Platelet Volume 8.2 fL (7.4-10.4); Nucleated Red Blood Cells % 0.1; Platelet Count 241 10^3/ul (150-450); Red Blood Count 5.93 10^6/ul (4.00-5.40); Red Cell Distribution Width 13 % (10.5-15); White Blood Count 7.1 10^3/ul (3.5-10.8)
--- NOTE | 2018-09-28 12:29 | UC ---
- Progress Note Progress Note: PROGRESS NOTE: LABORATORIES RESULTS Lipase is 14, within normal limits. Negative WBC. No change in treatment. Ronal Avila MD Course/Dx - Diagnoses Provider Diagnoses: Epigastric abdominal pain Discharge - Sign-Out/Discharge Documenting (check all that apply): Post-Discharge Follow Up All imaging exams completed and their final reports reviewed: No Studies - Discharge Plan Condition: Stable Disposition: HOME Patient Education Materials: Abdominal Pain (ED) Forms: *Work Release Referrals: Tanner Perez MD [Primary Care Provider] - 1 Week Additional Instructions: ABDOMINAL PAIN: There are many causes of abdominal pain. Pain can mean a serious problem requiring surgery (such as appendicitis), or an innocent problem which goes away on its own (such as a viral infection). Often, time must pass to determine the cause of pain. The physician does not feel that hospitalization is necessary, at present. Conditions may change, however, within the next 24 hours. GO TO THE ER WITHOUT FAIL IF ANY OF THE FOLLOWING OCCUR: 1) Pain which becomes more severe, steady, or becomes concentrated in one specific area. Also, pain which is more severe with movement or coughing. 2) Vomiting which persists or becomes more frequent. 3) Blood in the vomitus, urine, or bowel movements. Blood in the stool may have a tarry or black appearance. 4) Shaking chills or fever greater than 100 degrees F. 5) The abdomen becomes more distended or swollen. 6) Bowel movements cease. 7) Failure to improve as expected. BLOOD COUNT, PANCREATIC ENZYMES REPEATED TODAY. WE WILL CALL YOU WITH ANY ABNORMAL/CONCERNING RESULTS. ENSURE ADEQUATE HYDRATION. STICK TO MOSTLY CLEAR LIQUIDS UNTIL YOUR SYMPTOMS ARE IMPROVED. AVOID CAFFEINE, DAIRY, GREASY, SPICY FOODS. ONCE YOU ARE TOLERATING CLEAR LIQUIDS YOU CAN ADVANCE TO SIMPLE, BLAND FOODS. GO TO THE ER WITHOUT FAIL IF YOU DEVELOP WORSENING PAIN, FEVER, NAUSEA/VOMITING , BLEEDING FROM ANYWHERE OR ANY OTHER CONCERNING SYMPTOMS. - Billing Disposition and Condition Condition: STABLE Disposition: Home
== END 2018-09-27 11:11 | disposition home or self-care (01) ==
LOC: UCEAST 08:32
DX: R10.13 Epigastric pain (principal); F17.210 Nicotine dependence, cigarettes, uncomplicated; Z88.0 Allergy status to penicillin
CPT/HCPCS: 36415; 83690; 85025; 99211; G0463

== ENCOUNTER 2018-12-11 07:06 | Emergency (ER) | payer SELFPAY ==
[2018-12-11 07:23] VITALS: BP 143/90
--- NOTE | 2018-12-11 07:33 | UC ---
Abdominal Pain Male HPI - HPI Summary HPI Summary: ONSET YESTERDAY OF EPIGASTRIC PAIN. HE HAS A KNOWN HISTORY OF REFLUX. SYMPTOMS NORMALLY IMPROVE WITH MYLANTA AND TUMS AND PEPCID. STATES THIS TIME THOSE MEDICATIONS DID NOT HELP AT ALL. THIS MORNING HAD SOME NAUSEA AND VOMITED ONE TIME. DENIES ANY FEVER. NO DIARRHEA. PAIN WORSE WHEN HE LAYS ON HIS RIGHT SIDE. HAS NOT SEEN GI IN OVER 2 YEARS. - History of Current Complaint Chief Complaint: UCAbdominalPain Stated Complaint: STOMACH PAIN Time Seen by Provider: 12/11/18 07:23 Hx Obtained From: Patient Onset/Duration: Gradual Onset, Lasting Days, Still Present Timing: Constant Severity Initially: Moderate Severity Currently: Moderate Pain Intensity: 8 Pain Scale Used: 0-10 Numeric Location: Discrete At: RUQ, Epigastric Radiates: No Character: Sharp Aggravating Factor(s): Nothing Alleviating Factor(s): Nothing Associated Signs And Symptoms: Positive: Nausea, Vomiting. Negative: Diaphoresis, Fever, Back Pain, Urinary Symptoms, Diarrhea - Allergies/Home Medications Allergies/Adverse Reactions: Allergies Allergy/AdvReac Type Severity Reaction Status Date / Time amoxicillin Allergy Rash Verified 12/11/18 07:16 Penicillins Allergy Rash Verified 12/11/18 07:16 PMH/Surg Hx/FS Hx/Imm Hx - Additional Past Medical History Additional PMH: pt started with epigastric discomfort yesterday, did take tums and mylanta. did not help has been told he has gerd in past. vomited once this am. GI/ History: Gastroesophageal Reflux Other History Of: Negative For: Anticoagulant Therapy - Surgical History Surgical History: Yes Surgery Procedure, Year, and Place: Colonoscopy and Endoscopy, 2016, [place]; Lipoma x 5; \. R hand fracture with pin placement 2016 - Family History Known Family History: Positive: Cardiac Disease - mom's sister with [place] at age 40 , grandfather with [place] in his late 40's, Other - celiac disease - Social History Alcohol Use: Occasionally Substance Use Type: None Substance Use Comment - Amount & Last Used: stopped 3 weeks ago Smoking Status (MU): Light Every Day Tobacco Smoker Type: Cigarettes Amount Used/How Often: 1 ppd Length of Time of Smoking/Using Tobacco: Since Age 16 Have You Smoked in the Last Year: Yes When Did the Patient Quit Smoking/Using Tobacco: 4 days ago Household Exposure Type: Cigarettes Review of Systems All Other Systems Reviewed And Are Negative: Yes Constitutional: Positive: Negative ENT: Positive: Negative Respiratory: Positive: Negative Cardiovascular: Positive: Negative Gastrointestinal: Positive: Abdominal Pain, Vomiting, Nausea Genitourinary: Positive: Negative Physical Exam Triage Information Reviewed: Yes Appearance: Well-Appearing, No Pain Distress, Well-Nourished Vital Signs: Initial Vital Signs Temp 98.1 F 12/11/18 07:17 Pulse 75 12/11/18 07:17 Resp 16 12/11/18 07:17 BP 143/90 12/11/18 07:17 Pulse Ox 98 12/11/18 07:17 Vital Signs Reviewed: Yes Eyes: Positive: Conjunctiva Clear ENT: Positive: Hearing grossly normal, Pharynx normal Neck: Positive: Supple, Nontender, No Lymphadenopathy Respiratory Exam: Normal Cardiovascular Exam: Normal Abdomen Description: Positive: Soft, Other: - TTP EPIGASTRIC AND RUQ. NO REBOUND OR RIGIDITY.. Negative: CVA Tenderness (R), CVA Tenderness (L), Distended, Guarding Bowel Sounds: Positive: Present Musculoskeletal: Positive: No Edema Neurological: Positive: Alert Psychological: Positive: Age Appropriate Behavior Skin: Negative: Rashes Diagnostics - Radiology RUQ US Radiology Interpretation Completed By: Radiologist Summary of Radiographic Findings: GB AND PANCREAS UNREMARKABLE. No evidence of cholelithiasis or biliary duct dilatation. Abd Pain Male Course/Dx - Course Course Of Treatment: PATIENT REPORTS HE HAS BEEN DIAGNOSED WITH REFLUX AND ESOPHAGEAL EROSIONS IN THE PAST. SYMPTOMS NORMALLY IMPROVE WITH MYLANTA AND TUMS AND PEPCID. STATES THIS TIME THOSE MEDICATIONS DID NOT HELP AT ALL. HAS NOT SEEN GI IN OVER 2 YEARS. RIGHT UPPER QUADRANT ULTRASOUND TODAY WAS UNREMARKABLE. PANCREAS AND GALLBLADDER WITHOUT NOTABLE PATHOLOGY. GIVEN PATIENT'S DISTINCT EPIGASTRIC AND RIGHT UPPER QUADRANT TENDERNESS WILL CHECK LABS INCLUDING CBC, CMP AND LIPASE. ADVISED TO GO TO THE ER WITHOUT FAIL IF SYMPTOMS WORSEN. PATIENT WILL CALL GI TODAY TO SCHEDULE FOLLOW-UP APPOINTMENT FOR REEVALUATION. EASY DIET. GI COCKTAIL GIVEN TODAY. - Differential Dx/Clinical Impression Provider Diagnosis: Epigastric abdominal pain Discharge - Sign-Out/Discharge Documenting (check all that apply): Patient Departure All imaging exams completed and their final reports reviewed: Yes - Discharge Plan Condition: Stable Disposition: HOME Prescriptions: Esomeprazole(NF) [NexIUM(NF)] 40 mg PO DAILY #30 cap Patient Education Materials: Gastroesophageal Reflux Disease (ED), Esophagitis (ED) Forms: *Work Release Referrals: [facility] [Provider Group] - 1 Week Tanner Perez MD [Primary Care Provider] - If Needed Additional Instructions: ULTRASOUND TODAY UNREMARKABLE. NOTHING TO EXPLAIN YOUR SYMPTOMS. WILL TRY STRONGER REFLUX MEDICINE. YOU NEED TO FOLLOW-UP WITH [facility] FOR FURTHER EVALUATION OF YOUR SYMPTOMS. WILL CHECK BLOOD COUNT, METABOLIC PANEL AND LIPASE TODAY. TAKE THE REFLUX MEDICINE IN THE MORNING (IDEALLY AT LEAST 30 MINUTES BEFORE YOU EAT). EAT SLOWLY. STAY UPRIGHT AT LEAST 30 MINUTES AFTER EATING. EAT SMALLER , MORE FREQUENT MEALS OPPOSED TO LARGE INFREQUENT MEALS. AVOID POSSIBLE TRIGGER FOODSGREASY, SPICY, ACIDIC FOODS. CAFFEINE, ALCOHOL. CALL GI TODAY TO SCHEDULE A FOLLOW-UP APPOINTMENT GO TO THE ER WITHOUT FAIL IF YOU DEVELOP WORSENING PAIN, NAUSEA/VOMITING, FEVER OR ANY OTHER CONCERNING SYMPTOMS. - Billing Disposition and Condition Condition: STABLE Disposition: Home
[2018-12-11] MEDS ORDERED: Al Hydrox/Mg Hydrox/Simet LIQ* 30 ML UDC PO ONE (08:29)
[2018-12-11] MEDS ORDERED: Lidocaine 2% VISCOUS* 15 ML UDC PO ONE (08:30)
[2018-12-11 11:52] LABS: ABS Eosinophils 0.2 10^3/ul (0-0.6); ABS Lymphocytes 2.1 10^3/ul (1.0-4.8); ABS Monocytes 0.5 10^3/ul (0-0.8); ABS Neutrophils 3.3 10^3/ul (1.5-7.7); Eosinophil % 2.7 %; Hematocrit 51 % (42-52); Hemoglobin 17.5 g/dL (14.0-18.0); Lymphocyte % 34.5 %; Mean Corpuscular HGB Conc 34 g/dL (31-36); Mean Corpuscular Hemoglobin 29 pg (27-31); Mean Corpuscular Volume 86 fL (80-94); Mean Platelet Volume 8.2 fL (7.4-10.4); Platelet Count 220 10^3/uL (150-450); Red Cell Distribution Width 13 % (10.5-15); White Blood Count 6.1 10^3/uL (3.5-10.8)
[2018-12-11 11:54] LABS: Albumin 4.6 g/dL (3.2-5.2); Anion Gap 6 mmol/L (2-11); CO2 Carbon Dioxide 31 mmol/L (22-32); Calcium 9.9 mg/dL (8.6-10.3); Chloride 103 mmol/L (101-111); Potassium 4.2 mmol/L (3.5-5.0); Sodium 140 mmol/L (135-145)
[2018-12-11 12:00] LABS: ALT 23 U/L (7-52); AST 19 U/L (13-39); Albumin/Globulin Ratio 1.8 (1-3); Alkaline Phosphatase 41 U/L (34-104); BUN/Creatinine Ratio 21.3 (8-20); Blood Urea Nitrogen 19 mg/dL (6-24); EGFR African American 119.1 (>60); EGFR Non-African American 98.4 (>60); Globulin 2.6 g/dL (2-4); Glucose 94 mg/dL (70-100); Total Protein 7.2 g/dL (6.4-8.9)
== END 2018-12-11 08:50 | disposition home or self-care (01) ==
LOC: UCEAST 07:06
DX: R10.13 Epigastric pain (principal); R11.2 Nausea with vomiting, unspecified; R10.11 Right upper quadrant pain; K21.9 Gastro-esophageal reflux disease without esophagitis; Z88.0 Allergy status to penicillin; F17.210 Nicotine dependence, cigarettes, uncomplicated
CPT/HCPCS: 36415; 76705; 80053; 83690; 85025; 99212; A9270-GY; G0463

== ENCOUNTER 2019-05-19 08:14 | Emergency (ER) | payer SELFPAY ==
[2019-05-19 08:22] VITALS: BP 118/78
--- NOTE | 2019-05-19 08:41 | UC ---
Abdominal Pain Male HPI - HPI Summary HPI Summary: 34-year-old male comes in with a chief complaint of abdominal pain. Pain started yesterday while driving. No trauma. The worst pain is in the epigastrium and right upper quadrant. This also pain in the right lower quadrant. Patient's tried antacid medicines without any relief. Describes it as a pressure. Does occasionally get some burning up his esophagus and does have a history of GERD. No prior abdominal surgeries. No fevers measured. Last bowel movement was yesterday morning prior to the onset of the pain is said he felt somewhat constipated. No change in urination. Patient also reports for the last 3 months is been losing some hair on the top right part of his scalp. - History of Current Complaint Chief Complaint: UCAbdominalPain Stated Complaint: ABDOMINAL PAIN, AND VOMITING Time Seen by Provider: 05/19/19 08:37 Pain Intensity: 8 - Allergies/Home Medications Allergies/Adverse Reactions: Allergies Allergy/AdvReac Type Severity Reaction Status Date / Time amoxicillin Allergy Rash Verified 05/19/19 08:23 Penicillins Allergy Rash Verified 05/19/19 08:23 Home Medications: Home Medications NK [No Home Medications Reported] 05/19/19 [History Confirmed 05/19/19] PMH/Surg Hx/FS Hx/Imm Hx Previously Healthy: Yes Other History Of: Negative For: Anticoagulant Therapy - Surgical History Surgical History: Yes Surgery Procedure, Year, and Place: Colonoscopy and Endoscopy, 2015, [place]; Lipoma x 5; \. R hand fracture with pin placement 2015 - Family History Known Family History: Positive: Cardiac Disease - mom's sister with [place] at age 40 , grandfather with ID in his late 40's, Other - celiac disease - Social History Alcohol Use: Occasionally Substance Use Type: None Substance Use Comment - Amount & Last Used: stopped 3 weeks ago Smoking Status (MU): Light Every Day Tobacco Smoker Type: Cigarettes Amount Used/How Often: 1 ppd Length of Time of Smoking/Using Tobacco: Since Age 16 Have You Smoked in the Last Year: Yes When Did the Patient Quit Smoking/Using Tobacco: 4 days ago Household Exposure Type: Cigarettes Review of Systems All Other Systems Reviewed And Are Negative: Yes Constitutional: Positive: Other - SEE HPI Eyes: Positive: Negative ENT: Positive: Negative Respiratory: Positive: Negative Cardiovascular: Positive: Negative Gastrointestinal: Positive: Abdominal Pain, Other - SEE HPI Genitourinary: Positive: Negative Motor: Positive: Negative Neurovascular: Positive: Negative Musculoskeletal: Positive: Negative Neurological: Positive: Negative Psychological: Positive: Negative Is Patient Immunocompromised?: No Physical Exam Triage Information Reviewed: Yes Appearance: Well-Nourished, Ill-Appearing - MILD, Pain Distress - MILD at rest moderate to severe with exam. Vital Signs: Initial Vital Signs Temp 98.3 F 05/19/19 08:20 Pulse 59 05/19/19 08:20 Resp 17 05/19/19 08:20 BP 118/78 05/19/19 08:20 Pulse Ox 100 05/19/19 08:20 Vital Signs Reviewed: Yes Eye Exam: Normal Eyes: Positive: Conjunctiva Clear Neck: Positive: Supple Respiratory: Positive: Lungs clear, Normal breath sounds, No respiratory distress Cardiovascular: Positive: RRR Abdomen Description: Positive: Other: - Patient has right lower quadrant tenderness to palpation right upper quadrant tenderness to palpation and epigastric tenderness to palpation. Positive bowel sounds. Musculoskeletal: Positive: Strength Intact, ROM Intact Neurological: Positive: Alert Psychological: Positive: Age Appropriate Behavior Skin Exam: Normal Abd Pain Male Course/Dx - Course Course Of Treatment: Recommended further evaluation in the emergency department for the patient's abdominal pain. Follow-up with dermatology for the alopecia. - Differential Dx/Clinical Impression Provider Diagnosis: Right sided abdominal pain, Right upper quadrant abdominal pain, Alopecia Discharge ED - Sign-Out/Discharge Documenting (check all that apply): Patient Departure All imaging exams completed and their final reports reviewed: No Studies - Discharge Plan Condition: Stable Disposition: HOME-RECOMMEND TO ED Patient Education Materials: Acute Abdominal Pain (ED), Alopecia (DC) Referrals: Tanner Perez MD [Primary Care Provider] - Jahaira Lopez [Medical Doctor] - Cristi Sanchez MD [Medical Doctor] - Additional Instructions: GO DIRECTLY TO THE EMERGENCY DEPARTMENT FOR FURTHER EVALUATION. FOLLOW UP WITH DERMATOLOGY FOR YOUR HAIR LOSS. - Billing Disposition and Condition Condition: STABLE Disposition: Home-Recommend to ED
== END 2019-05-19 08:45 | disposition home health service (06) ==
LOC: UCEAST 08:14
DX: R10.11 Right upper quadrant pain (principal); R10.31 Right lower quadrant pain; R10.13 Epigastric pain; L65.9 Nonscarring hair loss, unspecified; R11.10 Vomiting, unspecified; K21.9 Gastro-esophageal reflux disease without esophagitis; F17.210 Nicotine dependence, cigarettes, uncomplicated; Z88.0 Allergy status to penicillin
CPT/HCPCS: 99211; G0463

== ENCOUNTER 2019-05-19 09:06 | Emergency (ER) | payer SELFPAY ==
--- NOTE | 2019-05-19 09:38 | ED ---
Abdominal Pain/Male - HPI Summary HPI Summary: This pt is a 34 y/o male presenting to [facility] referred from [facility] for abd pain since yesterday. Pt reports his abd pain is epigastric and radiates to his back and to the right side of his abd. He describes his pain as sharp and constant, and rates it 8/10 in severity. Pt denies eating or food aggravates pain. He states he had 1 episode of vomiting today, which he describes as food. Pt currently notes he has nausea. This morning he reports he had a bowel movement that was hard and described as small pellets. Denies bloody stools or discoloration. Pt notes he was cold yesterday but denies fever or diarrhea. Denies SOB or chest pain. Denies erythema of eyes, sore throat, cough, dysuria, hematuria, myalgia, edema, rash, or dizziness. Denies taking any NSAIDs. Pt admits to smoking but denies alcohol use. He rarely drinks caffeine. PMHx: anxiety for which he takes Ativan PRN. Denies hx of cholecystectomy or appendectomy. - History of Current Complaint Chief Complaint: EDAbdPain Stated Complaint: ABDOMINAL PAIN PER PT Time Seen by Provider: 05/19/19 09:16 Hx Obtained From: Patient Onset/Duration: Lasting Hours, Still Present Timing: Lasting Hours Severity Currently: Moderate Pain Intensity: 8 Pain Scale Used: 0-10 Numeric Location: Epigastric Radiates: Yes Radiates to: Back, Other - right sided abd Aggravating Factor(s): Nothing Alleviating Factor(s): Nothing Associated Signs And Symptoms: Positive: Constipation, Nausea, Vomiting. Negative: Fever, Cough, Chest Pain, Dizzy, Urinary Symptoms, Diarrhea - Allergies/Home Medications Allergies/Adverse Reactions: Allergies Allergy/AdvReac Type Severity Reaction Status Date / Time amoxicillin Allergy Rash Verified 05/19/19 09:14 Penicillins Allergy Rash Verified 05/19/19 09:14 Home Medications: Home Medications Sildenafil Citrate 100 mg PO DAILY PRN 05/19/19 [History Confirmed 05/19/19] PMH/Surg Hx/FS Hx/Imm Hx Endocrine/Hematology History: Denies: Hx Anticoagulant Therapy, Hx Diabetes Cardiovascular History: Reports: Other Cardiovascular Problems/Disorders - H/O BRADYCARDIA Denies: Hx Pacemaker/ICD Comment Only: Hx Hypertension - bradycardia Jul 2015-[facility] Respiratory History: Denies: Hx Asthma History: Denies: Hx Dialysis Sensory History: Denies: Hx Hearing Aid Neurological History: Denies: Hx CVA Psychiatric History: Reports: Hx Anxiety, Hx Panic Disorder - TAKES MEDICATION - Surgical History Surgical History: Yes Surgery Procedure, Year, and Place: Colonoscopy and Endoscopy, 2016, [facility]; Lipoma x 5; \. R hand fracture with pin placement 2016 Infectious Disease History: No Infectious Disease History: Denies: History Other Infectious Disease, Traveled Outside the [place] in Last 30 Days - Family History Known Family History: Positive: Cardiac Disease - mom's sister with CA at age 40 , grandfather with CA in his late 40's, Other - celiac disease - Social History Alcohol Use: Occasionally Hx Substance Use: No Substance Use Type: Reports: None Substance Use Comment - Amount & Last Used: stopped 3 weeks ago Hx Tobacco Use: Yes Smoking Status (MU): Light Every Day Tobacco Smoker Type: Cigarettes Amount Used/How Often: 1 ppd Length of Time of Smoking/Using Tobacco: Since Age 16 Have You Smoked in the Last Year: Yes Review of Systems Negative: Fever, Chills Negative: Erythema Negative: Sore Throat Negative: Chest Pain Negative: Shortness Of Breath, Cough Gastrointestinal: Other - POSITIVE: constipation Positive: Abdominal Pain, Vomiting, Nausea Negative: dysuria, hematuria Negative: Myalgia, Edema Negative: Rash Neurological: Other - NEGATIVE: dizziness All Other Systems Reviewed And Are Negative: Yes Physical Exam - Summary Physical Exam Summary: Constitutional: Well-developed, Well-nourished, Alert. (-) Distressed Skin: Warm, Dry HENT: Normocephalic; Atraumatic Eyes: Conjunctiva normal Neck: Musculoskeletal ROM normal neck. (-) JVD, (-) Stridor, (-) Tracheal deviation Cardio: Rhythm regular, rate normal, Heart sounds normal; Intact distal pulses; The pedal pulses are 2+ and symmetric. Radial pulses are 2+ and symmetric. (-) Murmur Pulmonary/Chest wall: Effort normal. (-) Respiratory distress, (-) Wheezes, (-) Rales Abd: Soft, Epigastric and right upper quadrant tenderness, (-) Distension, (-) Guarding, (-) Rebound Musculoskeletal: (-) Edema Lymph: (-) Cervical adenopathy Neuro: Alert, Oriented x3 Psych: Mood and affect Normal Triage Information Reviewed: Yes Vital Signs On Initial Exam: Initial Vitals Temp Pulse Resp BP Pulse Ox 97.3 F 59 14 129/87 98 05/19/19 09:11 05/19/19 09:11 05/19/19 09:11 05/19/19 09:11 05/19/19 09:11 Vital Signs Reviewed: Yes Procedures - Sedation Patient Received Moderate/Deep Sedation with Procedure: No Diagnostics - Vital Signs Vital Signs Temp Pulse Resp BP Pulse Ox 05/19/19 09:18 82 145/95 98 05/19/19 09:11 97.3 F 59 14 129/87 98 - Laboratory Result Diagrams: 05/19/19 09:30 05/19/19 09:30 Lab Statement: Any lab studies that have been ordered have been reviewed, and results considered in the medical decision making process. - Radiology Abd XR Radiology Interpretation Completed By: Radiologist Summary of Radiographic Findings: IMPRESSION: Moderate reina colonic stool volume. Dr. Silva has reviewed this report. - CT Abdomen/Pelvis CT CT Interpretation Completed By: Radiologist Summary of CT Findings: IMPRESSION: 1. No clear etiology for the patient's symptoms. 2. Moderate colonic stool volume. Dr. Silva has reviewed this report. - Ultrasound No standard instances Ultrasound Interpretation Completed By: Radiologist Summary of Ultrasound Findings: Gallbladder US IMPRESSION: No acute sonographic pathology of the visualized portion of the abdomen. The technologist reports patient pain over the pancreas. Dr. Silva has reviewed this report. Re-Evaluation - Re-Evaluation First Eval Re-Evaluation Time: 11:40 Change: Unchanged Comment: Pt reports no relief with GI cocktail. He states he he has epigastric pain when he swallows and when he takes medications by mouth. Second Eval Re-Evaluation Time: 14:09 Comment: Reviewed discharge plan with pt. He understands and agrees. Abdominal Pain Male Course/Dx - Course Assessment/Plan: Pt is a 34 y/o male presenting to [facility] referred from [facility] for abd pain since yesterday. Pt reports his abd pain is epigastric and radiates to his back and to the right side of his abd. He describes his pain as sharp and constant, and rates it 8/10 in severity. Pt denies eating or food aggravates pain. He states he had 1 episode of vomiting today, which he describes as food. Pt currently notes he has nausea. This morning he reports he had a bowel movement that was hard and described as small pellets. Denies bloody stools or discoloration. Lab results are unremarkable. Abd XR shows moderate reina colonic stool volume. Gallbladder US IMPRESSION: No acute sonographic pathology of the visualized portion of the abdomen. The technologist reports patient pain over the pancreas. In the ED course the pt was given Maalox and lidocaine viscous. On re-evaluation pt reported no relief with GI cocktail. Pt then received percocet. Abdomen/pelvis CT shows 1. No clear etiology for the patient's symptoms. 2. Moderate colonic stool volume. Pt was given citrate of magnesia and fleet enema. Pt will be discharged home with follow up from his PCP or [facility] in 2-3 days. He was given a prescription for Colace and milk of magnesia. Pt was given instructions to return to the ED for any worsening or new symptoms. He understands and agrees. - Diagnoses Provider Diagnoses: Constipation Discharge ED - Sign-Out/Discharge Documenting (check all that apply): Patient Departure - Discharge home - Discharge Plan Condition: Stable Disposition: HOME Prescriptions: Docusate CAP* [Colace Cap*] 100 mg PO BID PRN #30 cap PRN Reason: Constipation Magnesium Hydroxide LIQ* [Milk of Magnesia LIQ*] 30 ml PO Q6H PRN #1 btl PRN Reason: Constipation Patient Education Materials: Constipation (ED), High Fiber Diet (ED) Forms: *Work Release Referrals: Tanner Perez MD [Primary Care Provider] - [facility] [Outside] Additional Instructions: Follow up with your primary care provider or [facility] in 2-3 days. RETURN TO THE EMERGENCY DEPARTMENT FOR CHANGING OR WORSENING SYMPTOMS. - Attestation Statements Document Initiated by Scribe: Yes Documenting Scribe: Saba Martinez Provider For Whom Scribe is Documenting (Include Credential): Waylon Silva MD Scribe Attestation: Saba Cordero, scribed for Waylon Silva MD on 05/19/19 at 1411. Status of Scribe Document: Ready
[2019-05-19] MEDS ORDERED: Lidocaine 2% VISCOUS* 15 ML UDC PO ONE (09:39)
[2019-05-19] MEDS ORDERED: Al Hydrox/Mg Hydrox/Simet LIQ* 30 ML UDC PO ONE (09:39)
[2019-05-19 09:48] LABS: ABS Basophils 0.1 10^3/ul (0-0.2); ABS Eosinophils 0.2 10^3/ul (0-0.6); ABS Lymphocytes 2.5 10^3/ul (1.0-4.8); ABS Monocytes 0.5 10^3/ul (0-0.8); ABS Neutrophils 3.6 10^3/ul (1.5-7.7); Eosinophil % 2.5 %; Hematocrit 50 % (42-52); Hemoglobin 17.3 g/dL (14.0-18.0); Lymphocyte % 36.5 %; Mean Corpuscular HGB Conc 34 g/dL (31-36); Mean Corpuscular Hemoglobin 30 pg (27-31); Mean Corpuscular Volume 86 fL (80-94); Mean Platelet Volume 8.1 fL (7.4-10.4); Nucleated Red Blood Cells % 0.6; Platelet Count 219 10^3/uL (150-450); Red Blood Count 5.83 10^6 /uL (4.18-5.48); Red Cell Distribution Width 13 % (10-15); White Blood Count 6.8 10^3/uL (3.5-10.8)
[2019-05-19 10:02] LABS: ALT 22 U/L (7-52); Albumin 4.3 g/dL (3.2-5.2); Albumin/Globulin Ratio 1.7 (1-3); Alkaline Phosphatase 43 U/L (34-104); BUN/Creatinine Ratio 19.5 (8-20); Blood Urea Nitrogen 17 mg/dL (6-24); C Reactive Protein < 1.00 mg/L (<8.01); CO2 Carbon Dioxide 27 mmol/L (22-32); Calcium 9.4 mg/dL (8.6-10.3); Chloride 106 mmol/L (101-111); EGFR African American 121.5 (>60); EGFR Non-African American 100.4 (>60); Globulin 2.6 g/dL (2-4); Glucose 98 mg/dL (70-100); Sodium 138 mmol/L (135-145); Total Protein 6.9 g/dL (6.4-8.9)
[2019-05-19 10:10] LABS: Anion Gap 5 mmol/L (2-11)
[2019-05-19 11:03] LABS: Potassium 4.4 mmol/L (3.5-5.0)
[2019-05-19] MEDS ORDERED: oxyCODONE/Acetamin 5/325 MG* TAB PO ONE (11:27)
[2019-05-19 12:08] LABS: Urine Appearance Clear; Urine Bilirubin Negative (Negative); Urine Blood Negative (Negative); Urine Color Yellow; Urine Glucose Negative (Negative); Urine Ketones Negative (Negative); Urine Nitrite Negative (Negative); Urine Protein Negative (Negative); Urine Specific Gravity 1.019 (1.010-1.030); Urine Urobilinogen Negative (Negative)
[2019-05-19] MEDS ORDERED: Iohexol 300* (CONTRAST) 10 ML SDV IV ONE (13:01)
[2019-05-19] MEDS ORDERED: Sodium Phosphate ADULT ENEMA* 118 ml bottle PR ONE (13:53)
[2019-05-19] MEDS ORDERED: Magnesium CITRATE* 300 ML BTL PO ONE (13:53)
[2019-05-19 14:17] VITALS: BP 122/83
== END 2019-05-19 14:16 | disposition home or self-care (01) ==
LOC: ED 09:06
DX: K59.00 Constipation, unspecified (principal); R00.1 Bradycardia, unspecified; F41.9 Anxiety disorder, unspecified; F17.210 Nicotine dependence, cigarettes, uncomplicated; Z79.899 Other long term (current) drug therapy; Z88.0 Allergy status to penicillin; Z88.1 Allergy status to other antibiotic agents
CPT/HCPCS: 36415; 74018; 74177; 76705; 80053; 81003; 83605; 83690; 85025; 86140; 99283; A9270-GY; Q9967